=== PATIENT | male | born 1945 | race Caucasian/White ===

== ENCOUNTER 2018-03-01 06:11 | Day surgery (SDC) | payer MEDICARE, OTHER ==
--- NOTE | 2018-02-21 20:34 | HP ---
CC: Dr. Uri Cody; Dr. Servando Baker* ADMITTING HISTORY AND PHYSICAL: DATE OF ADMISSION: 03/01/18 ADMITTING DIAGNOSES: 1. Hematuria. 2. Bladder tumors. PLANNED PROCEDURE: Cystoscopy, transurethral resection of bladder tumors, right stent insertion. SURGEON: Dr. Baker. HISTORY OF PRESENT ILLNESS: Igor Green is a 72-year-old former smoker, who was recently noted to have microscopic hematuria. Cystoscopy revealed multiple areas of the bladder especially on the right side involved by what appears to be high- grade transitional cell carcinoma and in some areas with an appearance worrisome for possibly invasive transitional cell carcinoma. CT urogram did not reveal any evidence of hydronephrosis or any definite involvement of the upper tracts and he is now being brought in for transurethral resection of bladder tumors and right insertion. PAST MEDICAL HISTORY: Significant for: 1. Diabetes mellitus. 2. Hypertension. 3. High cholesterol. 4. Recurrent renal calculi. PAST SURGICAL HISTORY: Significant for tonsillectomy, back surgery in 1969, bilateral inguinal hernia surgery, cholecystectomy, ureteroscopy, and lithotripsy. MEDICATIONS ON ADMISSION: 1. Amlodipine 5 mg daily. 2. Allopurinol 300 mg daily. 3. Atorvastatin 20 mg daily. 4. Avodart 0.5 mg daily. 5. Metformin 500 mg 2 tablets b.i.d. 6. Glipizide XL 5 mg 2 tablets b.i.d. 7. Indapamide 2.5 mg daily. 8. Potassium citrate 10 mEq 3 times a day. 9. Flomax 0.4 mg daily. 10. Victoza 1 injection daily. 11. Lantus units at bedtime. 12. Flonase p.r.n. ALLERGIES AND INTOLERANCES: AMOXICILLIN, CLARITHROMYCIN, and INTRAVENOUSLY ADMINISTERED IODINATED CONTRAST. REVIEW OF SYSTEMS: He denies any chest pain. He is still fairly active and occasionally has shortness of breath with significant uphill walking, but is overall in fairly good shape in terms of his tolerance of physical activity. PHYSICAL EXAMINATION VITAL SIGNS: Reveal blood pressure of 150/80, pulse 71 per minute and regular, oxygen saturation 97% on room air. LUNGS: Clear bilaterally. CARDIOVASCULAR: Regular rate and rhythm. S1, S2. ABDOMEN: Soft without masses. IMPRESSION: I had a detailed discussion with Mr. Green and Ms. Green regarding the findings on cystoscopy. My concern is that the visual appearance is suspicious possibly for invasive transitional cell carcinoma and the extent of bladder involvement also appears fairly significant. PLAN: Plan is transurethral resection of bladder tumors, right stent insertion. [id number]/[facility]PS #: [id number] MTDD
[~2018-03-01 06:11] MED LIST: Buffered Lidocaine 0.9% SYRIN* 5 ML/SYR SYRINGE INTRADERM ONE
[2018-03-01] MEDS ORDERED: Levofloxacin 500 MG IVPREMIX(* 500 MG/100 ML BAG IVPB ONE (06:35)
[2018-03-01] MEDS ORDERED: Iohexol 180 (CONTRAST) 10 ML SDV IV ONE (07:23)
[2018-03-01] MEDS ORDERED: Propofol* 10 MG/ML 20 ML BTL IV PUSH ONE (07:26)
[2018-03-01] MEDS ORDERED: Midazolam* 1 MG/ML 5 ML VIAL (5 MG) ONE (07:26)
[2018-03-01] MEDS ORDERED: fentaNYL* 50 MCG/ML 2 ML VIAL (100 MCG VIAL) ONE (07:26)
[2018-03-01] MEDS ORDERED: Atracurium* 10 MG/ML 10 ML VIAL ONE (07:26)
[2018-03-01] MEDS ORDERED: fentaNYL* 50 MCG/ML 2 ML VIAL (100 MCG VIAL) IV PRN (08:07)
[2018-03-01] MEDS ORDERED: Ondansetron INJ* 2 MG/ML VIAL IV PRN (08:07)
[2018-03-01] MEDS ORDERED: oxyCODONE/Acetamin 5/325 MG* TAB PO PRN (08:07)
[2018-03-01] MEDS ORDERED: HYDROmorphone INJ* 0.5 MG/0.5 ML SYRINGE IV PRN (08:07)
[2018-03-01] MEDS ORDERED: Naloxone* 0.4 MG/ML 1 ML VIAL IV PRN (08:07)
[2018-03-01] MEDS ORDERED: Furosemide IV* 10 MG/ML 2 ML VIAL (20 MG) ONE ×2 (08:27→09:15)
--- NOTE | 2018-03-01 09:24 | RAD ---
INDICATION: Ureteral stent placement COMPARISONS: February 18, 2016 TECHNIQUE: Fluoroscopy was provided for a retrograde pyelogram and stent placement. Total fluoroscopy time is: 9 seconds FINDINGS: Contrast is noted within the renal collecting system. A ureteral stent is noted. IMPRESSION: FLUOROSCOPY WAS PROVIDED FOR A RETROGRADE PYELOGRAM AND STENT PLACEMENT CPT II Codes: G9500
[2018-03-01] MEDS ORDERED: Lidocaine 2% JELLY* 6 ML JELLY TOPICAL ONE (09:27)
[2018-03-01 10:14] VITALS: BP 149/83
--- NOTE | 2018-03-01 13:24 | OP ---
CC: Dr. Uri Cody * DATE OF OPERATION: 03/01/18 - [facility] DATE OF : 47 SURGEON: Dr. Baker. ANESTHESIOLOGIST: Dr. Frye. ANESTHESIA: General. PRE-OP DIAGNOSES: 1. Hematuria. 2. Bladder tumors. POST-OP DIAGNOSES: 1. Hematuria. 2. Bladder tumors. OPERATIVE PROCEDURE: 1. Cystoscopy, transurethral resection and fulguration of multiple bladder tumors (6 to 7 cm aggregates). 2. Right retrograde and right stent insertion. COMPLICATIONS: None. BLOOD LOSS: Less than 50 cc. STENT USED: 6-Sammarinese stent right ureter. INDICATIONS: Igor Green is a 72-year-old former smoker who was recently evaluated and noted to have significant microscopic hematuria, this prompted a cystoscopy in my office, which revealed the above-mentioned bladder tumors. Some of the tumors were surrounding the right orifice even though they are not causing any obstruction. OPERATIVE FINDINGS: 1. Moderately enlarged prostate. 2. Multiple papillary tumors distributed throughout the entire right side of bladder and surrounding right ureteral orifice (without causing obstruction), appearance consistent with high-grade transitional cell carcinoma, possibly invading lamina propria. POSTOPERATIVE CONDITION: Stable. DESCRIPTION OF PROCEDURE: After induction of general anesthesia, the patient was placed in dorsal lithotomy position, sequential compression devices were in place and functioning. Initial cystoscopy revealed the above-mentioned findings. Guidewire was introduced into the right ureter and right retrograde pyelogram was performed. There was no evidence of obstruction or filling defect and a 6- Sammarinese stent was introduced. Next, using the biopsy forceps in store representative, biopsies were obtained and sent for histopathology. Next, the resectoscope was introduced and all of the visible tumor was resected down to muscle. The tumor was distributed throughout the lateral wall and also the right side of the trigone and also extending towards the anterior wall. At the end of the procedure, hemostasis appeared satisfactory and there was no evidence of bladder perforation. A 22-Sammarinese Gutierrez catheter was introduced for bladder drainage. If the pathology reveals muscle invasive tumor then the next step would be to consider cystectomy possibly with caroline-adjuvant chemotherapy; if however the tumor is not invading into the muscle, then I would consider bringing him back in 3 to 4 weeks for a repeat transurethral resection to rule out any occult muscle invasion. The patient tolerated the procedure satisfactorily and was transferred back to the recovery area in stable condition. [id number]/[facility] #: [id number] MTDD
== END 2018-03-01 11:14 | disposition home or self-care (01) ==
LOC: OR 06:11
PROVIDERS: ATTEND Urology
DX: C67.2 Malignant neoplasm of lateral wall of bladder (principal); R31.29 Other microscopic hematuria; Z87.891 Personal history of nicotine dependence; N40.0 Benign prostatic hyperplasia without lower urinary tract symptoms; E11.9 Type 2 diabetes mellitus without complications; Z79.84 Long term (current) use of oral hypoglycemic drugs; E78.00 Pure hypercholesterolemia, unspecified; Z87.442 Personal history of urinary calculi; I10 Essential (primary) hypertension
CPT/HCPCS: 74420; 88305; C1876; J1940; J1956; J2250; J2704; J3010

== ENCOUNTER 2018-04-14 06:10 | Day surgery (SDC) | payer MEDICARE, OTHER ==
--- NOTE | 2018-04-05 06:49 | HP ---
CC: Dr. Uri Cody * ADMITTING HISTORY AND PHYSICAL: DATE OF ADMISSION: 04/14/18 ADMITTING DIAGNOSES: 1. Bladder cancer. 2. Hematuria. PLANNED PROCEDURES: 1. Cystoscopy, transurethral resection of bladder tumors (second-look procedure ). 2. Possible right stent insertion. SURGEON: Dr. Baker. HISTORY OF PRESENT ILLNESS: Igor Green is a 72-year-old former smoker who had undergone transurethral resection of bladder tumors on 03/01/18. Visual appearance had been consistent with high-grade transitional cell carcinoma; however, the pathology on the resected specimen showed low-grade noninvasive transitional cell carcinoma. Because of my concern at the initial visual appearance, he is now being brought in for a second-look procedure to make sure that no areas of high-grade or potentially invasive tumor were overlooked during the initial resection. PAST MEDICAL HISTORY: Significant for: 1. Recently diagnosed superficial bladder cancer. 2. Hypertension. 3. High cholesterol. 4. Diabetes mellitus. 5. History of renal calculi. MEDICATIONS ON ADMISSION: 1. Allopurinol 300 mg a day. 2. Avodart 0.5 mg a day. 3. Amlodipine 5 mg daily. 4. Atorvastatin 20 mg daily. 5. Glipizide XL 10 mg b.i.d. 6. Metformin 1000 mg twice a day. 7. Indapamide 2.5 mg daily. 8. Potassium citrate 10 mEq 3 times a day. 9. Lantus insulin at bedtime. 10. Victoza 1 injection daily. 11. Flomax 0.4 mg once a day. ALLERGIES AND INTOLERANCES: CLARITHROMYCIN, AMOXICILLIN, and INTRAVENOUS IODINATED CONTRAST. REVIEW OF SYSTEMS: He is otherwise in good health. He denies any chest pain or any shortness of breath and is fairly active physically. PHYSICAL EXAMINATION GENERAL: Reveals a pleasant healthy-appearing elderly gentleman. VITAL SIGNS: Blood pressure is 148/82, pulse 74 per minute, regular, oxygen saturation 96% on room air. LUNGS: Clear bilaterally. CARDIOVASCULAR EXAM: Regular rate and rhythm. S1, S2. ABDOMEN: Soft without masses. IMPRESSION: A 72-year-old former smoker with recently diagnosed superficial bladder cancer, now brought in for a second-look procedure. PLAN: Cystoscopy, transurethral resection of bladder tumors, possible right stent insertion. [id number]/[facility] #: [id number] [facility]
[~2018-04-14 06:10] MED LIST changes: +Famotidine IV* 10 MG/ML 2 ML (20 mg) IV ONE; +Metoclopramide IV* 5 MG/ML 2 ML VIAL IV SLOW PU ONE
[2018-04-14] MEDS ORDERED: Famotidine IV* 10 MG/ML 2 ML (20 mg) ONE (06:20)
[2018-04-14] MEDS ORDERED: Metoclopramide IV* 5 MG/ML 2 ML VIAL ONE (06:20)
[2018-04-14] MEDS ORDERED: Levofloxacin 500 MG IVPREMIX(* 500 MG/100 ML BAG IVPB ONE (06:21)
[2018-04-14] MEDS ORDERED: Buffered Lidocaine 0.9% SYRIN* 5 ML/SYR SYRINGE ONE (06:21)
[2018-04-14] MEDS ORDERED: Lidocaine 2% PF * 5 ML VIAL ONE (08:07)
[2018-04-14] MEDS ORDERED: Ondansetron INJ* 2 MG/ML VIAL ONE (08:07)
[2018-04-14] MEDS ORDERED: Furosemide IV* 10 MG/ML 2 ML VIAL (20 MG) ONE (08:07)
[2018-04-14] MEDS ORDERED: Propofol* 10 MG/ML 20 ML BTL IV PUSH ONE (08:07)
[2018-04-14] MEDS ORDERED: Naloxone* 0.4 MG/ML 1 ML VIAL IV PRN (08:50)
[2018-04-14] MEDS ORDERED: fentaNYL* 50 MCG/ML 2 ML VIAL (100 MCG VIAL) IV PRN (08:50)
[2018-04-14] MEDS ORDERED: Ketorolac INJ* 30 MG/ML 1 ML VIAL IV PRN (08:50)
[2018-04-14] MEDS ORDERED: Lidocaine 2% JELLY* 6 ML JELLY TOPICAL ONE (09:18)
--- NOTE | 2018-04-14 09:27 | RAD ---
INDICATION: Right ureteral stent insertion COMPARISONS: March 01, 2018 TECHNIQUE: Fluoroscopy was provided for a retrograde pyelogram and stent placement. Total fluoroscopy time is: 8 seconds FINDINGS: Spot images demonstrate contrast within the renal collecting system and a ureteral stent. IMPRESSION: FLUOROSCOPY WAS PROVIDED FOR A RETROGRADE PYELOGRAM AND STENT PLACEMENT CPT II Codes: G9500
[2018-04-14 09:51] VITALS: BP 145/79
--- NOTE | 2018-04-15 01:06 | OP ---
DATE OF OPERATION: 04/14/18 - [facility] DATE OF : 47 SURGEON: Servando Baker MD PRE-OP DIAGNOSIS: Bladder cancer. POST-OP DIAGNOSIS: Bladder cancer. OPERATIVE PROCEDURE: 1. Transurethral resection and fulguration of bladder tumors (second-look procedure). Aggregate 5 to 6 cm. 2. Right retrograde and right stent insertion. STENT USED: 7-Armenian stent right ureter. INDICATIONS: Igor Green is a 72-year-old gentleman who had previously undergone transurethral resection for superficial bladder cancer. Visually the tumor had appearance of high grade bladder cancer and pathology report revealed low-grade superficial bladder tumors. Because of the concern of the visual appearance, he is now being brought in for a second look procedure. POSTOPERATIVE CONDITION: Stable. BLOOD LOSS: Less than 50 cc. SPECIMEN: Bladder tumors, right lateral wall. DESCRIPTION OF PROCEDURE: After induction of general anesthesia, the patient was placed in dorsal lithotomy position. Sequential compression devices were in place and functioning. Initial cystoscopy revealed a normal appearing urethra and a significantly large obstructing prostate. The bladder was examined. There was extensive reaction in the right lateral wall and adjacent to the right side of the trigone, most of which I think represented post- operative reaction, but some of it may be residual tumor. There were some changes also extending anteriorly from the right lateral wall, which may represent carcinoma in situ. A guidewire was initially placed into the right ureter. Retrograde pyelogram did not reveal any filling defect or obstruction. The guidewire was left in while the rest of the procedure was carried out, because I was not sure whether I was going to place a stent. [employer] biopsies were obtained and sent for histopathology. Using the resectoscope all of the abnormal-appearing area was resected and sent for histopathology. Hemostasis was secured using the coagulating current. There was no evidence of bladder perforation. Since I had to do a fair amount of work close to what would be the intramural portion of the right ureter, I elected to go ahead and place a right stent and a 7-Armenian stent was introduced and positioned under fluoroscopy with good proximal and distal positioning obtained. A 22-Armenian Gutierrez was placed with temporary bladder drainage. The patient tolerated the procedure satisfactorily and was transferred back to recovery area in stable condition. [id number]/[facility] #: [id number] [facility]
== END 2018-04-14 10:24 | disposition home or self-care (01) ==
LOC: OR 06:10
PROVIDERS: ATTEND Urology
DX: C67.2 Malignant neoplasm of lateral wall of bladder (principal); E11.9 Type 2 diabetes mellitus without complications; Z79.4 Long term (current) use of insulin; Z79.84 Long term (current) use of oral hypoglycemic drugs; I10 Essential (primary) hypertension; E78.00 Pure hypercholesterolemia, unspecified; Z87.442 Personal history of urinary calculi; Z87.891 Personal history of nicotine dependence
CPT/HCPCS: 74420; 88305; C1876; J1940; J1956; J2405; J2704; J2765

== ENCOUNTER 2018-04-20 13:20 | Inpatient (IN) | payer MEDICARE, OTHER ==
[2018-04-20 14:15] LABS: ABS Basophils 0.1 10^3/ul (0-0.2); ABS Eosinophils 0.3 10^3/ul (0-0.6); ABS Lymphocytes 0.7 10^3/ul (1.0-4.8); ABS Monocytes 1.3 10^3/ul (0-0.8); ABS Nucleated RBC 0 10^3/ul; Eosinophil % 2.2 % (0-6); Hematocrit 45 % (42-52); Hemoglobin 15.5 g/dl (14.0-18.0); Lymphocyte % 5.2 % (25-47); Mean Corpuscular HGB Conc 34 g/dl (31-36); Mean Corpuscular Hemoglobin 32 pg (27-31); Mean Corpuscular Volume 93 fL (80-94); Mean Platelet Volume 8.8 um3 (7.4-10.4); Nucleated Red Blood Cells % 0; Platelet Count 211 10^3/ul (150-450); Red Blood Count 4.84 10^6/ul (4.00-5.40); Red Cell Distribution Width 13 % (10.5-15); White Blood Count 13.3 10^3/ul (3.5-10.8)
[2018-04-20 14:33] LABS: EGFR Non-African American 46.1 (>60)
--- NOTE | 2018-04-20 14:48 | ED ---
HPI Febrile Illness - HPI Summary HPI Summary: 72 y/o male presents to ED c/o sudden onset fever and chills starting this morning. Pt c/o pain at site of R stent with urination at 04:00 this morning. Although the pt usually c/o of mild pain with urination, it usually resolves spontaneously; this morning the pain did not resolve. Pt had increased urinary frequency throughout the night; pt states he had to go once every 20 minutes or so. After the episode fo pain the pt developed chills and a fever; his temperature reached 101.5 this morning. Given 2 Tylenol at 07:00 this morning. After some relief of sx, pt again developed chills and fever late this morning ( 101.7). Seen at Dr. Baker's office today and given 2g of Rocephin IM. Then the pt's temperature spiked to 103 and the pt was sent to the ED. Pt had gallbladder sx 6 days ago. PMHx gallbladder CA, DM. Rectal temp on visit 102.2. - History of Current Complaint Chief Complaint: EDFever Time Seen by Provider: 04/20/18 14:41 Hx Obtained From: Patient Onset/Duration: Started Hours Ago, Still Present Timing: Constant Pain Intensity: 0 Associated Signs and Symptoms: Chills, Other: - increased urinary frequency, pain with urination - Allergy/Home Medications Allergies/Adverse Reactions: Allergies Allergy/AdvReac Type Severity Reaction Status Date / Time ampicillin Allergy Intermediate Hives Verified 04/14/18 06:25 Penicillins Allergy Intermediate Hives Verified 04/14/18 06:25 iv contrast Allergy Intermediate Rash Uncoded 04/14/18 06:25 Home Medications: Home Medications amLODIPine TAB* [Norvasc 5 mg TAB*] 5 mg PO QPM 04/20/18 [History Confirmed 05/28] PMH/Surg Hx/FS Hx/Imm Hx Previously Healthy: No Endocrine/Hematology History: Reports: Hx Diabetes Cardiovascular History: Reports: Hx Hypertension, Other Cardiovascular Problems/ Disorders - hyperlipidemia GI History: Reports: Hx Irritable Bowel - reports d/t metformin, Other GI Disorders - hx of h pylori- resolved History: Reports: Hx Kidney Stones - renal calculi, Other Problems/ Disorders - bladder cancer Musculoskeletal History: Reports: Hx Arthritis - bilateral hands Sensory History: Reports: Hx Cataracts - just beginning, Hx Contacts or Glasses - glasses Denies: Hx Hearing Aid Opthamlomology History: Reports: Hx Cataracts - just beginning, Hx Contacts or Glasses - glasses Neurological History: Reports: Hx Nerve Disease - diabetic neuropathy - Surgical History Surgery Procedure, Year, and Place: 1949 TONSILLECTOMY, [facility]. 1969 BACK SURGERY, [place]. 1965 RIGHT ANKLE SURGERY, [place]. 1975 PAPAYA INJECTION IN BACK, [place]. 1992 BILATERAL INGUINAL HERNIA REPAIR, [facility] [place]. 2005 LAPAROSCOPIC CHOLECYSTECTOMY, [facility] [place]. 2010 CYSTOSCOPY WITH LEFT STENT INSERTION, X 2 [facility] [place]. 2010 LEFT INGUINAL HERNIA REPAIR, [facility] [place]. - february 2018 [facility] [place]. 2013 CYSTO with right stent insertion - [facility] [place] Hx Anesthesia Reactions: No Infectious Disease History: No Infectious Disease History: Denies: Traveled Outside the [place] in Last 30 Days - Social History Alcohol Use: Daily Alcohol Amount: reports 2 beers per day, one small glass scotch daily Substance Use Type: Reports: None Smoking Status (MU): Former Smoker Type: Cigarettes Amount Used/How Often: smoked 1ppd for approx 6 years Review of Systems Positive: Fever, Chills Eyes: Negative ENT: Negative Cardiovascular: Negative Respiratory: Negative Gastrointestinal: Negative Positive: frequency - increased, pain - with urination Musculoskeletal: Negative Skin: Negative Neurological: Negative Psychological: Normal All Other Systems Reviewed And Are Negative: Yes Physical Exam - Summary Physical Exam Summary: VITAL SIGNS: Reviewed. GENERAL: Patient is a well-developed and nourished male who is lying comfortable in the stretcher. Patient is not in any acute respiratory distress. Patient is febrile. HEAD AND FACE: No signs of trauma. No ecchymosis, hematomas or skull depressions. No sinus tenderness. EYES: PERRLA, EOMI x 2, No injected conjunctiva, no nystagmus. EARS: Hearing grossly intact. Ear canals and tympanic membranes are within normal limits. MOUTH: Oropharynx within normal limits. NECK: Supple, trachea is midline, no adenopathy, no JVD, no carotid bruit, no c- spine tenderness, neck with full ROM. CHEST: Symmetric, no tenderness at palpation LUNGS: Clear to auscultation bilaterally. No wheezing or crackles. CVS: Regular rate and rhythm, S1 and S2 present, no murmurs or gallops appreciated. ABDOMEN: Soft, non-tender. No signs of distention. No rebound no guarding, and no masses palpated. Bowel sounds are normal. EXTREMITIES: FROM in all major joints, no edema, no cyanosis or clubbing. NEURO: Alert and oriented x 3. No acute neurological deficits. Speech is normal and follows commands. SKIN: Dry and warm Triage Information Reviewed: Yes Vital Signs On Initial Exam: Initial Vitals Temp Pulse Resp BP Pulse Ox 101.3 F 98 17 179/69 96 04/20/18 13:22 04/20/18 13:22 04/20/18 13:22 04/20/18 13:22 04/20/18 13:22 Vital Signs Reviewed: Yes Diagnostics - Vital Signs Vital Signs Temp Pulse Resp BP Pulse Ox 04/20/18 13:22 101.3 F 98 17 179/69 96 - Laboratory Lab Results: Lab Results 04/20/18 04/20/18 04/20/18 Range/Units 14:03 14:03 14:03 WBC 13.3 H (3.5-10.8) 10^3/ul RBC 4.84 (4.00-5.40) 10^6/ul Hgb 15.5 (14.0-18.0) g/dl Hct 45 (42-52) % MCV 93 (80-94) fL MCH 32 H (27-31) pg MCHC 34 (31-36) g/dl RDW 13 (10.5-15) % Plt Count 211 (150-450) 10^3/ul MPV 8.8 (7.4-10.4) um3 Neut % (Auto) 82.8 (38-83) % Lymph % (Auto) 5.2 L (25-47) % [place] % (Auto) 9.4 H (0-7) % Eos % (Auto) 2.2 (0-6) % Baso % (Auto) 0.4 (0-2) % Absolute Neuts (auto) 11.0 H (1.5-7.7) 10^3/ul Absolute Lymphs (auto) 0.7 L (1.0-4.8) 10^3/ul Absolute Monos (auto) 1.3 H (0-0.8) 10^3/ul Absolute Eos (auto) 0.3 (0-0.6) 10^3/ul Absolute Basos (auto) 0.1 (0-0.2) 10^3/ul Absolute Nucleated RBC 0 10^3/ul Nucleated RBC % 0 Sodium 135 (135-145) mmol/L Potassium 3.5 (3.5-5.0) mmol/L Chloride 95 L (101-111) mmol/L Carbon Dioxide 28 (22-32) mmol/L Anion Gap 12 H (2-11) mmol/L BUN 23 (6-24) mg/dL Creatinine 1.50 H (0.67-1.17) mg/dL Est GFR ( Amer) 55.8 (>60) Est GFR (Non-Af Amer) 46.1 (>60) BUN/Creatinine Ratio 15.3 (8-20) Glucose 160 H (70-100) mg/dL Lactic Acid 1.7 (0.5-2.0) mmol/L Calcium 9.5 (8.6-10.3) mg/dL Total Bilirubin 0.60 (0.2-1.0) mg/dL AST 31 (13-39) U/L ALT 36 (7-52) U/L Alkaline Phosphatase 60 (34-104) U/L C-Reactive Protein 25.51 H (<8.01) mg/L Total Protein 8.0 (6.4-8.9) g/dL Albumin 4.5 (3.2-5.2) g/dL Globulin 3.5 (2-4) g/dL Albumin/Globulin Ratio 1.3 (1-3) Result Diagrams: 04/20/18 14:03 04/20/18 14:03 Lab Statement: Any lab studies that have been ordered have been reviewed, and results considered in the medical decision making process. - Radiology CXR Xray Interpretation: No Acute Changes - No active cardiopulmonary disease noted Radiology Interpretation Completed By: Radiologist - ED Physician reviews and agrees - EKG 1 EKG Interpretation: 14:57 - SR @ [address] elevations. Similar to 08/04/05 Course/Dx - Course Assessment/Plan: 72 y/o male presents to ED c/o sudden onset fever and chills starting this morning. Pt c/o pain at site of R stent with urination at 04:00 this morning. Although the pt usually c/o of mild pain with urination, it usually resolves spontaneously; this morning the pain did not resolve. Pt had increased urinary frequency throughout the night; pt states he had to go once every 20 minutes or so. After the episode fo pain the pt developed chills and a fever; his temperature reached 101.5 this morning. Given 2 Tylenol at 07:00 this morning. After some relief of sx, pt again developed chills and fever late this morning (101.7). Seen at Dr. Baker's office today and given 2g of Rocephin IM. Then the pt's temperature spiked to 103 and the pt was sent to the ED. Pt had gallbladder sx 6 days ago. PMHx gallbladder CA, DM. Rectal temp on visit 102.2. Blood work without any significant abnormality except for white blood cell count of 13.3, anion gap of 12, creatinine of 1.5, glucose 160, and CRP of 25.5. I ordered the patient to get to IV accesses and the patient was given IV fluids 30 cc's per KG and I gave the patient one dose of Cefepime since I believe that the patient is becoming septic. I discussed the case with Dr. Baker from urology and he agrees with the management. He recommends admission to the hospitalist and he will consult for the patient. I also discussed the findings and test results with Dr. Carey from the hospital services and she accepted patient for admission. Patient continues to be hemodynamically stable. - Febrile Illness Differential Diagnoses: Bacteremia, Pyelonephritis - Diagnoses Provider Diagnoses: UTI (urinary tract infection), Sepsis - Provider Notifications Discussed Care Of Patient With: Manisha Carey Time Discussed With Above Provider: 15:10 Instructed by Provider To: Admit As Inpatient Discharge - Sign-Out/Discharge Documenting (check all that apply): Patient Departure - Discharge Plan Condition: Stable - Billing Disposition and Condition Condition: STABLE Disposition: Admitted to [facility] - Attestation Statements Document Initiated by Scribe: Yes Documenting Scribe: Jonah Avalos Provider For Whom Rosario is Documenting (Include Credential): Yifan Quezada MD Scribe Attestation: Jonah Mcdonough, scribed for Yifan Quezada MD on 04/20/18 at 1758. Scribe Documentation Reviewed: Yes Provider Attestation: The documentation as recorded by the Jonah smith accurately reflects the service I personally performed and the decisions made by me, Yifan Quezada MD
[2018-04-20] MEDS ORDERED: Acetaminophen TAB* 325 MG ONE (14:51)
[2018-04-20] MEDS ORDERED: NS 0.9% 1000 ML*IV.FLUID IV ONE (14:52)
[2018-04-20] MEDS ORDERED: Acetaminophen TAB* 325 MG PO ONE (14:54)
[2018-04-20] MEDS ORDERED: Cefepime 2 GM in Dextrose(*) 2 GM/50 ML BAG IV ONE (15:00)
--- NOTE | 2018-04-20 15:40 | RAD ---
Indication: Fever. Single frontal view of the chest performed at 1518 hours was reviewed. No prior study is available for comparison. No mediastinal shift is noted. Heart is of normal size and configuration. Lung santos appear clear. IMPRESSION: NO ACTIVE CARDIOPULMONARY DISEASE IS NOTED.
[2018-04-20] MEDS ORDERED: Fluticasone NASAL SPRAY 50MCG* 16 gm SPRAY BTL BOTH NARES PRN (16:28)
[2018-04-20] MEDS ORDERED: Dextrose 50% Syringe 50 ML* 25 GM/50 ML SYRINGE IV PUSH PRN (16:30)
[2018-04-20] MEDS ORDERED: NS 0.9% 1000 ML* 2,000 ML IV ONE (16:40)
[2018-04-20 17:39] LABS: Urine Appearance Cloudy; Urine Blood 2+ (Negative); Urine Color Straw; Urine Ketones Negative (Negative); Urine Protein 1+(30 mg/dL) (Negative); Urine Red Blood Cell 3+(>10/hpf) (Absent); Urine Specific Gravity 1.009 (1.010-1.030); Urine Urobilinogen Negative (Negative); Urine White Blood Cell 3+(>20/hpf) (Absent)
[2018-04-20] MEDS ORDERED: amLODIPine TAB* 5 MG PO SCH (18:00)
[2018-04-20] MEDS: Cyanocobalamin TAB* 500 MCG PO SCH (19:27)
[2018-04-20] MEDS: Tamsulosin CAP* 0.4 MG PO SCH (19:27)
[2018-04-20] MEDS: Atorvastatin* 20 MG TAB PO SCH (19:27)
[2018-04-20] MEDS: Insulin LISPRO* 1 UNITS UNIT SUBCUT SCH ×2 (19:49→19:55)
[2018-04-20] MEDS: Insulin GLARGINE(*) 1 UNITS UNIT SUBCUT SCH (20:11)
[2018-04-20] MEDS: Heparin VIAL(*) 5000 UNITS/ML VIAL (FIVE THOUSAND) SUBCUT SCH (20:11)
[2018-04-20] MEDS: Acetaminophen TAB* 325 MG PO PRN (20:15)
--- NOTE | 2018-04-20 20:56 | HP ---
CC: Dr. Baker; Dr. Cody* HISTORY AND PHYSICAL: DATE OF ADMISSION: 04/20/18 TIME OF ADMISSION: 4:30 p.m. CHIEF COMPLAINT: Fevers. HISTORY OF PRESENT ILLNESS: This is a 72-year-old man with history of bladder cancer, who underwent a biopsy on Tuesday with Dr. Baker and had been recovering well until this morning when he woke up with fevers and chills. He initially had a biopsy several weeks ago, which according to his returned as low- grade neoplasm and Dr. Baker was concerned for a more aggressive type of cancer , so he elected to do a repeat biopsy on Tuesday. Igor admits that he had been feeling very drained since that time, but thought that he was healing okay. He of note also has a ureteral stent and gets dysuria since that stent was placed; however, since Tuesday, he has had worsening right lower quadrant pain. PAST MEDICAL HISTORY: 1. Type 2 diabetes. 2. Hypertension. 3. Gout. 4. BPH. 5. Nephrolithiasis. 6. Bladder cancer. PAST SURGICAL HISTORY: Lithotripsy and cystoscopy and hernia repairs. SOCIAL HISTORY: He quit smoking 45 years ago. He drinks approximately 4 beers and 1 scotch per day; however, he has not drank since Tuesday. He has never had alcohol withdrawal. REVIEW OF SYSTEMS: Positive for dysuria, fevers, chills, abdominal pain. He denies diarrhea, constipation, nausea, vomiting, headaches. The remainder of 14 - point review of systems is negative. PHYSICAL EXAMINATION GENERAL: Alert, well-appearing man, in no distress. VITAL SIGNS: Current temperature is 100.4, peak temperature was 102.2 rectally ; heart rate is 97; respiratory rate 22; pulse ox 96% on room air; blood pressure 158/80. HEENT: Pupils are equal, round, and reactive to light. Oral mucosa is moist. He has no pharyngeal exudates. NECK: No JVP. No cervical adenopathy. LUNGS: Clear bilaterally. CHEST: Regular rate and rhythm. No murmurs. PMI is nondisplaced. ABDOMEN: Obese, soft, mildly tender to deep palpation in the right lower quadrant. He has ecchymoses on his abdomen from Victoza injections. He has no CVA tenderness. EXTREMITIES: No rashes, ulcers, edema. NEUROLOGIC: Strength is 5/5 throughout. He is oriented x3. DIAGNOSTIC STUDIES/LAB DATA: White blood cells 13.3, hemoglobin 15.5, platelets 211. Sodium 135, potassium 3.5, chloride 95, BUN 23, creatinine 1.5. Baseline creatinine is 1.4. Glucose 160, lactic acid 1.7. Chest x-ray: No active cardiopulmonary disease. EKG: Normal sinus rhythm, left axis deviation, normal intervals, no chamber hypertrophy, no ST or T changes. ASSESSMENT AND PLAN: This is a 72-year-old man with history of bladder cancer that is currently being worked up by Dr. Baker, presents to the emergency department 6 days after a biopsy with fevers and rigors. 1. Sepsis with a presumed pelvic source. I suspect he had bacteremia given his reported rigors and elevated fevers here, especially in the setting of recent instrumentation. He has received cefepime in the emergency department and I think this is a reasonable antibiotic to continue. He is hemodynamically stable and has received 1 L of fluids. I will give him 2 more liters to complete the 30 cc per kg volume resuscitation. Blood cultures have been sent in the ED. I am ordering a urinalysis and urine cultures and if he does not improve quickly, may consider a CT pelvis to rule out an abscess. 2. Bladder cancer. The pathology report from last Tuesday shows low-grade papillary urothelial carcinoma. I did not discuss this finding with them. He is to undergo BCG treatment with Dr. Baker. I am consulting Dr. Baker. 3. Diabetes. Continue his home dose of Lantus along with lispro and fingersticks. I am holding his metformin and glipizide and Victoza. 4. Benign prostatic hypertrophy. Continue Flomax. 5. Hypertension. Continue amlodipine since he is quite hypertensive here. 6. DVT prophylaxis: Subcutaneous Lovenox. 7. Chronic kidney disease. His creatinine appears at baseline. 8. Diet: Consistent carb. 9. Full code. [id number]/CPS #: [id number] [facility]
[2018-04-20] MEDS ORDERED: glipiZIDE TAB.XL* 5 MG PO SCH (21:00)
[2018-04-20] MEDS ORDERED: Ibuprofen TAB* 400 MG PO ONE (22:13)
[2018-04-21] MEDS: Cefepime 2 GM in Dextrose(*) 2 GM/50 ML BAG IV SCH ×3 (03:46→15:18)
[2018-04-21] MEDS: Heparin VIAL(*) 5000 UNITS/ML VIAL (FIVE THOUSAND) SUBCUT SCH ×3 (07:18→20:33)
[2018-04-21] MEDS: Acetaminophen TAB* 325 MG PO PRN ×2 (07:37→19:48)
[2018-04-21] MEDS ORDERED: Vancomycin 1500 MG IV - x ONCE IVPB ONE ×2 (08:00)
[2018-04-21] MEDS: Allopurinol TAB* 300 MG PO SCH (08:06)
[2018-04-21] MEDS: Insulin LISPRO* 1 UNITS UNIT SUBCUT SCH ×4 (08:06→20:31)
[2018-04-21] MEDS: Indapamide TAB* 2.5 MG PO SCH (08:07)
--- NOTE | 2018-04-21 09:13 | PN ---
Subjective - Subjective Reason for Note: Progress Note History: Last Tuesday (today is Tuesday) Dr. Baker placed a right ureteric stent. 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 He woke yesterday at 5 am with high fever and pain. This was controlled with acetaminophen. His temperature went up >105F and hence he came to the hospital. He has had rigors, chills and sweats. Overnight he had one more episode. He had anterior abdominal pain, that has now eased. He has been cooled overnight with ice packs and a fan. He has a mild headache, but no neck stiffness or photophobia. 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, uncontr (Chronic ) E11.3299, E11.65 Type 2 diabetes, uncontrolled, with neuropathy (Chronic) E11.40, E11.65 Ureteral stent retained (Chronic) Z96.0 Urothelial carcinoma of bladder (Chronic) C67.9 Current Medications: Current Medications Acetaminophen (Tylenol Tab*) 650 mg PO Q6H PRN PRN Reason: FEVER/PAIN Last Admin: 04/21/18 07:37 Dose: 650 mg Allopurinol (Zyloprim Tab*) 300 mg PO QAM [facility] Last Admin: 04/21/18 08:06 Dose: 300 mg Atorvastatin Calcium (Lipitor*) 20 mg PO QPM [facility] Last Admin: 04/20/18 19:27 Dose: 20 mg Cyanocobalamin (Vitamin B12 Tab*) 500 mcg PO QPM [facility] Last Admin: 04/20/18 19:27 Dose: 500 mcg Dextrose (D50w Syringe 50 Ml*) 12.5 gm IV PUSH .FOR FS < 60 - SS PRN PRN Reason: FS < 60 Fluticasone Propionate (Flonase Nasal [place] 50mcg*) 1 spray BOTH NARES ONCE PRN PRN Reason: allergies Heparin Sodium (Porcine) (Heparin Vial(*)) 5,000 units SUBCUT Q8HR [facility] Last Admin: 04/21/18 07:18 Dose: 5,000 units Cefepime HCl (Maxipime 2 Gm In Dextrose Duplex (*)) 2 gm in 50 mls @ 100 mls/ hr IV Q12H [facility] Last Admin: 04/21/18 03:46 Dose: 100 mls/hr Lactated Ringer's (Lactated Ringers 1000 Ml Bag*) 1,000 mls @ 75 mls/hr IV PER RATE [facility] Last Admin: 04/20/18 20:12 Dose: 75 mls/hr Vancomycin HCl 1,500 mg/ (Sodium Chloride) 250 mls @ 166.667 mls/hr IVPB ONCE ONE Stop: 04/21/18 09:29 Last Admin: 04/21/18 08:38 Dose: 166.667 mls/hr Indapamide (Lozol Tab*) 2.5 mg PO QAM [facility] Last Admin: 04/21/18 08:07 Dose: 2.5 mg Insulin Glargine (Lantus(*)) 60 units SUBCUT BEDTIME [facility] Last Admin: 04/20/18 20:11 Dose: 60 unit Insulin Human Lispro (Humalog*) 0 units SUBCUT ACHS [facility]; Protocol Last Admin: 04/21/18 08:06 Dose: 3 units Tamsulosin HCl (Flomax Cap*) 0.4 mg PO QPM [facility] Last Admin: 04/20/18 19:27 Dose: 0.4 mg - Review of Systems Constitutional Symptoms: Yes: Weakness, Fatigue, Fever, Night Sweats Dermatology: Rash: No Pulmonary: Negative: Cough, Sputum, Respiratory Distress, Shortness of Breath Cardiology: Positive: Swelling of Ankles - periodic swelling right ankle ? cause Negative: Chest Pain, Shortness of Breath, Palpitations Gastroenterology: Positive: Abdominal Pain, Nausea Negative: Vomiting, Anorexia, Constipation, Diarrhea, Blood in Stools, Change in Bowel Habits Genital - Urinary: Positive: Dysuria Negative: Hematuria, Polyuria Home Medications: Home Medications Medication Instructions Recorded Confirmed Type Fluticasone NASAL * [Flonase (NF)] 1 inh BOTH NARES ONCE PRN 08/15/12 04/20/18 History Tamsulosin CAP* [Flomax CAP*] 0.4 mg PO QPM 08/15/12 04/20/18 History metFORMIN* [Glucophage*] 2 tab PO BID 08/15/12 04/20/18 History Allopurinol TAB* [Zyloprim 300 MG 300 mg PO QAM 02/21/18 04/20/18 History TAB*] Atorvastatin* [Lipitor*] 20 mg PO QPM 02/21/18 04/20/18 History Cyanocobalamin (Vitamin B-12) 500 mcg PO QPM 02/21/18 04/20/18 History [B-12] Dutasteride (NF) [Avodart (NF)] 0.5 mg PO QAM 02/21/18 04/20/18 History Indapamide TAB* [Lozol TAB*] 2.5 mg PO QAM 02/21/18 04/20/18 History Insulin GLARGINE(*) [Lantus(*)] 60 units SUBCUT BEDTIME 02/21/18 04/20/18 History Liraglutide (NF) [Victoza (NF)] 1.8 mg SUBCUT DAILY 02/21/18 04/20/18 History Potassium Citrate [Potassium 10 meq PO TID 02/21/18 04/20/18 History Citrate ER] glipiZIDE TAB.XL* [Glucotrol XL*] 10 mg PO BID 02/21/18 04/20/18 History amLODIPine TAB* [Norvasc 5 mg TAB*] 5 mg PO QPM 04/20/18 04/20/18 History Allergies: Allergies Allergy/AdvReac Type Severity Reaction Status Date / Time ampicillin Allergy Intermediate Hives Verified 04/14/18 06:25 Penicillins Allergy Intermediate Hives Verified 04/14/18 06:25 iv contrast Allergy Intermediate Rash Uncoded 04/14/18 06:25 Objective - Vital Signs Vital Signs: Vital Signs 04/20/18 04/20/18 04/20/18 13:22 14:48 14:49 Temperature 101.3 F Pulse Rate 98 98 98 Respiratory 17 23 18 Rate Blood Pressure 179/69 179/102 (mmHg) O2 Sat by Pulse 96 93 93 Oximetry 04/20/18 04/20/18 04/20/18 14:54 15:00 15:19 Temperature 102.2 F Pulse Rate Respiratory 20 25 Rate Blood Pressure 171/79 (mmHg) O2 Sat by Pulse Oximetry 04/20/18 04/20/18 04/20/18 15:48 15:50 16:00 Temperature 99.2 F Pulse Rate 94 95 Respiratory 26 26 Rate Blood Pressure 146/80 (mmHg) O2 Sat by Pulse 93 91 Oximetry 04/20/18 04/20/18 04/20/18 16:18 16:31 16:48 Temperature 100.4 F Pulse Rate 97 Respiratory 22 29 Rate Blood Pressure 158/80 153/91 (mmHg) O2 Sat by Pulse 96 Oximetry 04/20/18 04/20/18 04/20/18 17:00 17:18 17:44 Temperature 100.4 F Pulse Rate 96 96 Respiratory 23 22 22 Rate Blood Pressure 144/81 144/81 (mmHg) O2 Sat by Pulse 90 96 Oximetry 04/20/18 04/20/18 04/20/18 17:51 18:15 19:54 Temperature 99.2 F 99.2 F 103.1 F Pulse Rate 101 101 117 Respiratory 24 24 32 Rate Blood Pressure 158/74 158/74 (mmHg) O2 Sat by Pulse 98 94 Oximetry 04/20/18 04/20/18 04/20/18 20:00 20:23 22:34 Temperature 101.8 F 102 F Pulse Rate 115 103 Respiratory 32 38 24 Rate Blood Pressure 169/69 154/63 (mmHg) O2 Sat by Pulse 94 94 94 Oximetry 04/20/18 04/21/18 04/21/18 23:14 00:12 03:14 Temperature 101.8 F 98.9 F 98.4 F Pulse Rate 107 100 81 Respiratory 25 20 20 Rate Blood Pressure 153/75 139/67 149/76 (mmHg) O2 Sat by Pulse 91 94 96 Oximetry 04/21/18 04/21/18 07:30 07:40 Temperature 103.8 F 99.1 F Pulse Rate 110 Respiratory 20 Rate Blood Pressure 145/65 (mmHg) O2 Sat by Pulse 92 Oximetry - Intake and Output Intake and Output: Intake & Output 04/18/18 04/19/18 04/20/18 04/21/18 11:59 11:59 11:59 11:59 Intake Total 3414 Output Total 1975 Balance 1439 Weight 242 lb 12.8 oz Intake: IV Fluids 3351 LR 1351 IVPB 63 LR 63 Oral 0 Output: Urine 1974 Other: # Bowel Movements 0 # Voids 0 ADLs: Meal Record Start: 04/20/18 18: 34 Freq: DAILY@0900,1400,1800 Status: Active Protocol: Created 04/20/18 18:34 System (Rec: 04/20/18 18:34 System [id number]) Intake and Output Start: 04/20/18 13: 26 Freq: Status: Active Protocol: Created 04/20/18 13:26 System (Rec: 04/20/18 13:26 System [id number]) Intake and Output Start: 04/20/18 18: 34 Freq: DAILY@0600,1400,2200 Status: Active Protocol: Created 04/20/18 18:34 System (Rec: 04/20/18 18:34 System [id number]) Document 04/20/18 22:00 [id number] (Rec: 04/20/18 23:30 [id number] TELE-C01) Document 04/20/18 22:15 [id number] (Rec: 04/21/18 01:09 [id number] TELE-C05) Document 04/21/18 01:08 [id number] (Rec: 04/21/18 01:08 [id number] TELE-C05) Document 04/21/18 06:00 [id number] (Rec: 04/21/18 06:14 [id number]) - Physical Exam General Physical Exam Comment: He is flushed, febrile, but well perfused. He has no rash. No neck rigidity. He is conversational and fully lucid/oriented. General: No Cyanosis, No Anemia, No Jaundice, No Clubbing Endocrine: Yes Central Obesity, No Acromegaly, No Vitiligo, No Flushing, No Acanthosis nigricans, No Violaceious striae, No Marshall Syndrome, No Buccal pigmenatation Lungs and Chest: Yes: Chest Expansion Full, Chest Expansion Symetrica, Percussion Note Resonant, Vessicular Breath Sounds. No: Crackles, Wheezes, Respiratory Distress, Use of Accessory Muscles Heart Rate and Rhythm: Tachycardia JVP: Not Elevated Additional Cardiovascular: Yes: Normal Heart Sounds. No: Heart Murmur, Carotid Bruits, Pedal Edema Abdominal Exam: Yes: Soft, Bowel Sounds Present. No: Distention, Rigidity, Abdominal Mass, Hepatomegaly, Abdominal Tenderness, Guarding, Rebound Tenderness - Extremities Cranial Nerves II-XII Intact: Yes Limbs: Normal Power, Normal Tone - Neuro Orientation: A/O x3 Psychiatric: Normal Speech: Normal Results - Results Lab Results: Laboratory Results - last 24 hr 04/20/18 04/20/18 04/20/18 14:03 14:03 14:03 WBC 13.3 H RBC 4.84 Hgb 15.5 Hct 45 MCV 93 MCH 32 H MCHC 34 RDW 13 Plt Count 211 MPV 8.8 Neut % (Auto) 82.8 Lymph % (Auto) 5.2 L Reeves % (Auto) 9.4 H Eos % (Auto) 2.2 Baso % (Auto) 0.4 Absolute Neuts (auto) 11.0 H Absolute Lymphs (auto) 0.7 L Absolute Monos (auto) 1.3 H Absolute Eos (auto) 0.3 Absolute Basos (auto) 0.1 Absolute Nucleated RBC 0 Nucleated RBC % 0 Sodium 135 Potassium 3.5 Chloride 95 L Carbon Dioxide 28 Anion Gap 12 H BUN 23 Creatinine 1.50 H Est GFR ( Amer) 55.8 Est GFR (Non-Af Amer) 46.1 BUN/Creatinine Ratio 15.3 Glucose 160 H POC Glucose (mg/dL) Lactic Acid 1.7 Calcium 9.5 Total Bilirubin 0.60 AST 31 ALT 36 Alkaline Phosphatase 60 C-Reactive Protein 25.51 H Total Protein 8.0 Albumin 4.5 Globulin 3.5 Albumin/Globulin Ratio 1.3 Urine Color Urine Appearance Urine pH Ur Specific [place] Urine Protein Urine Ketones Urine Blood Urine Nitrate Urine Bilirubin Urine Urobilinogen Ur Leukocyte Esterase Urine WBC (Auto) Urine RBC (Auto) Urine Bacteria Urine Glucose 04/20/18 04/20/18 04/20/18 16:40 17:38 18:08 WBC RBC Hgb Hct MCV MCH MCHC RDW Plt Count MPV Neut % (Auto) Lymph % (Auto) Reeves % (Auto) Eos % (Auto) Baso % (Auto) Absolute Neuts (auto) Absolute Lymphs (auto) Absolute Monos (auto) Absolute Eos (auto) Absolute Basos (auto) Absolute Nucleated RBC Nucleated RBC % Sodium Potassium Chloride Carbon Dioxide Anion Gap BUN Creatinine Est GFR ( Amer) Est GFR (Non-Af Amer) BUN/Creatinine Ratio Glucose POC Glucose (mg/dL) 206 H Lactic Acid 1.6 Calcium Total Bilirubin AST ALT Alkaline Phosphatase C-Reactive Protein Total Protein Albumin Globulin Albumin/Globulin Ratio Urine Color Straw Urine Appearance Cloudy Urine pH 6.0 Ur Specific [place] 1.009 L Urine Protein 1+(30 mg/dl) A Urine Ketones Negative Urine Blood 2+ A Urine Nitrate Negative Urine Bilirubin Negative Urine Urobilinogen Negative Ur Leukocyte Esterase 3+ A Urine WBC (Auto) 3+(>20/hpf) A Urine RBC (Auto) 3+(>10/hpf) A Urine Bacteria Absent Urine Glucose Negative 04/20/18 04/20/18 04/21/18 21:16 21:17 07:40 WBC RBC Hgb Hct MCV MCH MCHC RDW Plt Count MPV Neut % (Auto) Lymph % (Auto) Reeves % (Auto) Eos % (Auto) Baso % (Auto) Absolute Neuts (auto) Absolute Lymphs (auto) Absolute Monos (auto) Absolute Eos (auto) Absolute Basos (auto) Absolute Nucleated RBC Nucleated RBC % Sodium 138 Potassium 3.3 L Chloride 104 Carbon Dioxide 24 Anion Gap 10 BUN 21 Creatinine 1.45 H Est GFR ( Amer) 58.1 Est GFR (Non-Af Amer) 48.0 BUN/Creatinine Ratio 14.5 Glucose 225 H POC Glucose (mg/dL) 182 H Lactic Acid 1.9 Calcium 8.3 L Total Bilirubin AST ALT Alkaline Phosphatase C-Reactive Protein Total Protein Albumin Globulin Albumin/Globulin Ratio Urine Color Urine Appearance Urine pH Ur Specific [place] Urine Protein Urine Ketones Urine Blood Urine Nitrate Urine Bilirubin Urine Urobilinogen Ur Leukocyte Esterase Urine WBC (Auto) Urine RBC (Auto) Urine Bacteria Urine Glucose Radiology Results: Patient Name: KATLYN CYR Medical Record#: [id number] Ordering Physician: Yifan Quezada MD Acct.#: [id number] : 1945 Age: 72 Sex: M Location: EMERGENCY DEPARTMENT Exam Date: 04/20/18 1453 ADM Status: REG ER Order Information: CHEST AP PORTABLE Accession Number: [id number] CPT: 58132 Indication: Fever. Single frontal view of the chest performed at 1518 hours was reviewed. No prior study is available for comparison. No mediastinal shift is noted. Heart is of normal size and configuration. Lung santos appear clear. IMPRESSION: NO ACTIVE CARDIOPULMONARY DISEASE IS NOTED. <Electronically signed by Dianna Green MD in [place]> 04/20/181536 Dictated By: Dianna Green MD Dictated Date/Time: 04/20/181536 Transcribed Date/Time: 04/20/181534 Copy to: CC:Uri Coyd MD; Yifan Quezada MD Imaging - [facility] - [place] [facility] [address] [address] ph ([phone]) ph ([phone]) ph ([phone]) This report is only to be considered final once signed by the Provider(s) as displayed in the "<Electronically Signed by >" field (s). Absence of a signature indicates the report is in a draft status and still needs to be finalized. In the event this document was created by someone other than the signing Provider, the individual initiating the document will be listed in the "Entered by:" or "Dictated by:" santos. 1 of 1 EKG Report: Rate 98 OH 145 QTc 557 QRS -33 LAFB. Poor R-wave progression. 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 Baker placed a stent 1 week ago. He presents with sepsis, abdominal pain. I will check an US kidneys to look for right pyonephrosis. I will spoke with Servando Baker MD who saw him in the ED. He recommends a KUB to find the position of the stent and an US kidneys. He will visit later. He is taking vancomycin and cefepime. I won't add anything. I will maintain IVF to support his BP. Urothelial carcinoma of bladder (Chronic) Dr. 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 To continue intensive insulin management Essential hypertension (Chronic) He is not hypotensive. Hyperlipidemia (Chronic) secondary diagnosis Nephrolithiasis (Chronic) Half-Way issue for which he is following with Dr. Baker. A CT in February showed a right sided non-obstructive renal stone. He had a stent placed last Tuesday with a clear retrograde urogram Nonalcoholic steatohepatitis (ALDRIDGE) (Chronic) secondary diagnosis Obesity (BMI 30.0-34.9) (Chronic) secondary diagnosis I discussed the above with the patient - he agrees with management
[2018-04-21] MEDS ORDERED: Vancomycin per Pharmacy* NOTE FOLLOW UP PRN (10:56)
--- NOTE | 2018-04-21 12:37 | RAD ---
HISTORY: urosepsis COMPARISONS: CT dated February 17, 2018 TECHNIQUE: Multiple transverse and longitudinal ultrasound images were obtained of the kidneys using grayscale and color Doppler imaging. FINDINGS: RIGHT KIDNEY: There is an exophytic simple cyst of the lower pole of the right kidney measuring 1.6 x 1.6 x 1.3 cm in size, corresponding to the finding noted on the previous CT examination. There is no hydronephrosis or nephrolithiasis. The right kidney measures 11.9 x 6.4 x 7.4 cm. LEFT KIDNEY: There are multiple renal cysts, including a cyst with a thin internal septation versus 2 adjacent simple cysts of the midpole of the left kidney. These are stable from the previous CT examination, measuring up to 2.7 cm in size. There is no hydronephrosis or nephrolithiasis. The left kidney measures 10.8 x 6.2 x 8.1 cm. BLADDER: The bladder is smooth in contour. The left ureteral jet is not clearly visualized.. The prevoid bladder volume is 282 milliliters.. The postvoid bladder volume is 215 milliliters. AORTA AND IVC: No images are submitted of the vasculature. RETROPERITONEUM: Unremarkable. PROSTATE: The prostate gland measures 5 x 2.2 x 3.74 volume of 21.9 mL. IMPRESSION: 1. NO HYDRONEPHROSIS. 2. THE LEFT URETERAL JET IS NOT CLEARLY VISUALIZED. 3. 215 ML POSTVOID RESIDUAL
--- NOTE | 2018-04-21 13:38 | RAD ---
HISTORY: urosepsis with right stent COMPARISONS: April 14, 2018 VIEWS: Frontal views of the abdomen. FINDINGS: BOWEL: There is a nonspecific bowel gas pattern, with nondilated small bowel gas noted. CALCULI: A right ureteral stent is noted. BONES AND SOFT TISSUES: Degenerative changes are noted. OTHER FINDINGS: The lung bases are clear. There is no subphrenic gas. IMPRESSION: RIGHT URETERAL STENT
[2018-04-21] MEDS: Atorvastatin* 20 MG TAB PO SCH (17:11)
[2018-04-21] MEDS: Cyanocobalamin TAB* 500 MCG PO SCH (17:11)
[2018-04-21] MEDS: Tamsulosin CAP* 0.4 MG PO SCH (17:11)
[2018-04-21] MEDS: Vancomycin(*) 1,250 MG in NS 0.9% 250 ML* 250 ML IVPB SCH (20:27)
[2018-04-21] MEDS: Insulin GLARGINE(*) 1 UNITS UNIT SUBCUT SCH (20:30)
[2018-04-22] MEDS: Cefepime 2 GM in Dextrose(*) 2 GM/50 ML BAG IV SCH ×2 (03:29→15:08)
[2018-04-22 05:04] LABS: Hematocrit 38 % (42-52); Mean Corpuscular HGB Conc 34 g/dl (31-36); Mean Corpuscular Hemoglobin 32 pg (27-31); Mean Corpuscular Volume 93 fL (80-94); Mean Platelet Volume 8.6 um3 (7.4-10.4); Platelet Count 156 10^3/ul (150-450); Red Blood Count 4.07 10^6/ul (4.00-5.40); Red Cell Distribution Width 13 % (10.5-15)
[2018-04-22 05:05] LABS: ABS Basophils 0.1 10^3/ul (0-0.2); ABS Eosinophils 0.3 10^3/ul (0-0.6); ABS Lymphocytes 0.7 10^3/ul (1.0-4.8); ABS Monocytes 1.6 10^3/ul (0-0.8); ABS Neutrophils 15.2 10^3/ul (1.5-7.7); ABS Nucleated RBC 0 10^3/ul; Eosinophil % 1.5 % (0-6); Lymphocyte % 4.2 % (25-47); Nucleated Red Blood Cells % 0
[2018-04-22 05:24] LABS: EGFR Non-African American 50.8 (>60)
[2018-04-22] MEDS: Heparin VIAL(*) 5000 UNITS/ML VIAL (FIVE THOUSAND) SUBCUT SCH ×3 (05:32→20:08)
[2018-04-22] MEDS: Vancomycin(*) 1,250 MG in NS 0.9% 250 ML* 250 ML IVPB SCH (08:05)
[2018-04-22] MEDS: Allopurinol TAB* 300 MG PO SCH (08:06)
[2018-04-22] MEDS: Indapamide TAB* 2.5 MG PO SCH (08:06)
[2018-04-22] MEDS: Insulin LISPRO* 1 UNITS UNIT SUBCUT SCH ×4 (08:08→20:07)
[2018-04-22] MEDS: Acetaminophen TAB* 325 MG PO PRN ×2 (08:18→23:17)
--- NOTE | 2018-04-22 10:24 | PN ---
Subjective - Subjective Reason for Note: Progress Note History: He had a fever of 102F overnight. However, he is feeling better this morning. He has walked around the floor without problems independently. He continues to have right flank pain when he voids, but no dysuria/hematuria. His appetite is restored. 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, uncontr (Chronic ) E11.3299, E11.65 Type 2 diabetes, uncontrolled, with neuropathy (Chronic) E11.40, E11.65 Ureteral stent retained (Chronic) Z96.0 Urothelial carcinoma of bladder (Chronic) C67.9 Current Medications: Current Medications Acetaminophen (Tylenol Tab*) 650 mg PO Q6H PRN PRN Reason: FEVER/PAIN Last Admin: 04/22/18 08:18 Dose: 650 mg Allopurinol (Zyloprim Tab*) 300 mg PO QAM [facility] Last Admin: 04/22/18 08:06 Dose: 300 mg Atorvastatin Calcium (Lipitor*) 20 mg PO QPM [facility] Last Admin: 04/21/18 17:11 Dose: 20 mg Cyanocobalamin (Vitamin B12 Tab*) 500 mcg PO QPM [facility] Last Admin: 04/21/18 17:11 Dose: 500 mcg Dextrose (D50w Syringe 50 Ml*) 12.5 gm IV PUSH .FOR FS < 60 - SS PRN PRN Reason: FS < 60 Fluticasone Propionate (Flonase Nasal [place] 50mcg*) 1 spray BOTH NARES ONCE PRN PRN Reason: allergies Heparin Sodium (Porcine) (Heparin Vial(*)) 5,000 units SUBCUT Q8HR [facility] Last Admin: 04/22/18 05:32 Dose: 5,000 units Cefepime HCl (Maxipime 2 Gm In Dextrose Duplex (*)) 2 gm in 50 mls @ 100 mls/ hr IV Q12H [facility] Last Admin: 04/22/18 03:29 Dose: 100 mls/hr Lactated Ringer's (Lactated Ringers 1000 Ml Bag*) 1,000 mls @ 75 mls/hr IV PER RATE [facility] Last Admin: 04/21/18 20:28 Dose: 75 mls/hr Vancomycin HCl 1,250 mg/ (Sodium Chloride) 250 mls @ 166.667 mls/hr IVPB Q12H [facility] Last Admin: 04/22/18 08:05 Dose: 166.667 mls/hr Indapamide (Lozol Tab*) 2.5 mg PO QAM [facility] Last Admin: 04/22/18 08:06 Dose: 2.5 mg Insulin Glargine (Lantus(*)) 60 units SUBCUT BEDTIME [facility] Last Admin: 04/21/18 20:30 Dose: 60 unit Insulin Human Lispro (Humalog*) 0 units SUBCUT ACHS [facility]; Protocol Last Admin: 04/22/18 08:08 Dose: 6 units Pharmacy Consult (Vancomycin Per Pharmacy*) 1 note FOLLOW UP . PRN PRN Reason: PER PROTOCOL Pharmacy Profile Note (Vancomycin Trough Check) 1 note FOLLOW UP .ENTER TIME ONE Stop: 04/23/18 07:31 Tamsulosin HCl (Flomax Cap*) 0.4 mg PO QPM [facility] Last Admin: 04/21/18 17:11 Dose: 0.4 mg Home Medications: Home Medications Medication Instructions Recorded Confirmed Type Fluticasone NASAL * [Flonase (NF)] 1 inh BOTH NARES ONCE PRN 08/15/12 04/20/18 History Tamsulosin CAP* [Flomax CAP*] 0.4 mg PO QPM 08/15/12 04/20/18 History metFORMIN* [Glucophage*] 2 tab PO BID 08/15/12 04/20/18 History Allopurinol TAB* [Zyloprim 300 MG 300 mg PO QAM 02/21/18 04/20/18 History TAB*] Atorvastatin* [Lipitor*] 20 mg PO QPM 02/21/18 04/20/18 History Cyanocobalamin (Vitamin B-12) 500 mcg PO QPM 02/21/18 04/20/18 History [B-12] Dutasteride (NF) [Avodart (NF)] 0.5 mg PO QAM 02/21/18 04/20/18 History Indapamide TAB* [Lozol TAB*] 2.5 mg PO QAM 02/21/18 04/20/18 History Insulin GLARGINE(*) [Lantus(*)] 60 units SUBCUT BEDTIME 02/21/18 04/20/18 History Liraglutide (NF) [Victoza (NF)] 1.8 mg SUBCUT DAILY 02/21/18 04/20/18 History Potassium Citrate [Potassium 10 meq PO TID 02/21/18 04/20/18 History Citrate ER] glipiZIDE TAB.XL* [Glucotrol XL*] 10 mg PO BID 02/21/18 04/20/18 History amLODIPine TAB* [Norvasc 5 mg TAB*] 5 mg PO QPM 04/20/18 04/20/18 History Allergies: Allergies Allergy/AdvReac Type Severity Reaction Status Date / Time ampicillin Allergy Intermediate Hives Verified 04/14/18 06:25 Penicillins Allergy Intermediate Hives Verified 04/14/18 06:25 Iodinated Contrast- Oral and Allergy Rash Verified 04/22/18 08:56 IV Dye iv contrast Allergy Intermediate Rash Uncoded 04/14/18 06:25 Objective - Vital Signs Vital Signs: Vital Signs 04/21/18 04/21/18 04/21/18 12:20 15:34 19:29 Temperature 99.1 F 97.8 F 102.1 F Pulse Rate 91 84 95 Respiratory 22 18 18 Rate Blood Pressure 129/64 126/62 143/64 (mmHg) O2 Sat by Pulse 94 95 94 Oximetry 04/21/18 04/21/18 04/21/18 20:00 21:10 23:36 Temperature 99.6 F 98.1 F Pulse Rate 84 73 Respiratory 18 18 22 Rate Blood Pressure 126/60 126/66 (mmHg) O2 Sat by Pulse 97 93 97 Oximetry 04/22/18 04/22/18 04/22/18 03:52 07:16 08:03 Temperature 98.6 F 99.3 F Pulse Rate 86 80 Respiratory 18 18 20 Rate Blood Pressure 144/64 136/69 (mmHg) O2 Sat by Pulse 95 97 Oximetry - Intake and Output Intake and Output: Intake & Output 04/19/18 04/20/18 04/21/18 04/22/18 11:59 11:59 11:59 11:59 Intake Total 3414 3570.1 Output Total 1975 0 Balance 1439 3570.1 Weight 242 lb 12.8 oz Intake: IV Fluids 3351 1680.1 Cefepime 15 LR 1351 1665.1 IVPB 63 50 Cefepime 50 LR 63 Oral 0 1840 Output: Urine 1975 0 Other: Estimated Void Medium # Bowel Movements 0 0 # Voids 0 1 ADLs: Meal Record Start: 04/20/18 18: 34 Freq: DAILY@0900,1400,1800 Status: Active Protocol: Created 04/20/18 18:34 System (Rec: 04/20/18 18:34 System TELE-M12) Document 04/21/18 09:00 [id number] (Rec: 04/21/18 10:29 [id number] TELE-C01) Document 04/21/18 14:00 [id number] (Rec: 04/21/18 15:14 [id number] TELE-C05) Document 04/21/18 17:56 [id number] (Rec: 04/21/18 17:56 [id number] TELE-C01) Document 04/22/18 09:00 [id number] (Rec: 04/22/18 09:38 [id number] TELE-C09) Intake and Output Start: 04/20/18 13: 26 Freq: Status: Active Protocol: Created 04/20/18 13:26 System (Rec: 04/20/18 13:26 System ED-C24) Intake and Output Start: 04/20/18 18: 34 Freq: DAILY@0600,1400,2200 Status: Active Protocol: Created 04/20/18 18:34 System (Rec: 04/20/18 18:34 System TELE-M12) Document 04/20/18 22:00 [id number] (Rec: 04/20/18 23:30 [id number] TELE-C01) Document 04/20/18 22:15 [id number] (Rec: 04/21/18 01:09 [id number] TELE-C05) Document 04/21/18 01:08 [id number] (Rec: 04/21/18 01:08 [id number] TELE-C05) Document 04/21/18 06:00 [id number] (Rec: 04/21/18 06:14 [id number] TELE-C34) Document 04/21/18 14:00 [id number] (Rec: 04/21/18 15:14 [id number] TELE-C05) Document 04/21/18 22:00 [id number] (Rec: 04/21/18 22:08 [id number] TELE-C01) Document 04/22/18 06:00 [id number] (Rec: 04/22/18 06:50 [id number] TELE-C33) - Physical Exam General Physical Exam Comment: He feels warm and continues to look flushed General: No Cyanosis, No Anemia, No Jaundice, No Clubbing Skin: Normal: Rash Lungs and Chest: Yes: Chest Expansion Full, Chest Expansion Symetrica, Percussion Note Resonant, Vessicular Breath Sounds. No: Crackles, Wheezes, Respiratory Distress, Use of Accessory Muscles Heart Rate and Rhythm: Regular [place] Beat: Non Displaced Additional Cardiovascular: Yes: Normal Heart Sounds, Heart Murmur. No: Pedal Edema Abdominal Exam: Yes: Soft. No: Distention, Rigidity, Hepatomegaly, Abdominal Tenderness, Guarding, Rebound Tenderness, Kidneys Palpable - flank tenderness, Bowel Sounds Present Results - Results Lab Results: Laboratory Results - last 24 hr 04/21/18 04/21/18 04/21/18 11:47 16:31 19:50 WBC RBC Hgb Hct MCV MCH MCHC RDW Plt Count MPV Neut % (Auto) Lymph % (Auto) [place] % (Auto) Eos % (Auto) Baso % (Auto) Absolute Neuts (auto) Absolute Lymphs (auto) Absolute Monos (auto) Absolute Eos (auto) Absolute Basos (auto) Absolute Nucleated RBC Nucleated RBC % Sodium Potassium Chloride Carbon Dioxide Anion Gap BUN Creatinine Est GFR ( Amer) Est GFR (Non-Af Amer) BUN/Creatinine Ratio Glucose POC Glucose (mg/dL) 120 H 228 H 268 H Calcium Total Bilirubin Direct Bilirubin Indirect Bilirubin AST ALT Alkaline Phosphatase C-Reactive Protein Total Protein Albumin Globulin Albumin/Globulin Ratio 04/22/18 04/22/18 04/22/18 04:52 04:52 07:29 WBC 18.0 H RBC 4.07 Hgb 13.0 L Hct 38 L MCV 93 MCH 32 H MCHC 34 RDW 13 Plt Count 156 MPV 8.6 Neut % (Auto) 84.7 H Lymph % (Auto) 4.2 L [place] % (Auto) 8.9 H Eos % (Auto) 1.5 Baso % (Auto) 0.7 Absolute Neuts (auto) 15.2 H Absolute Lymphs (auto) 0.7 L Absolute Monos (auto) 1.6 H Absolute Eos (auto) 0.3 Absolute Basos (auto) 0.1 Absolute Nucleated RBC 0 Nucleated RBC % 0 Sodium 133 L Potassium 3.0 L Chloride 99 L Carbon Dioxide 26 Anion Gap 8 BUN 17 Creatinine 1.38 H Est GFR ( Amer) 61.5 Est GFR (Non-Af Amer) 50.8 BUN/Creatinine Ratio 12.3 Glucose 248 H POC Glucose (mg/dL) 240 H Calcium 8.1 L Total Bilirubin 0.60 Direct Bilirubin 0.20 H Indirect Bilirubin 0.4 AST 27 ALT 29 Alkaline Phosphatase 46 C-Reactive Protein 267.86 H Total Protein 6.2 L Albumin 3.2 Globulin 3.0 Albumin/Globulin Ratio 1.1 Radiology Results: Patient Name: KATLYN CYR Medical Record#: [id number] Ordering Physician: Uri Cody MD Acct.#: [id number] : 1945 Age: 72 Sex: M Location: [address] [place] [address]/TELEMETRY Exam Date: 04/21/18930 ADM Status: ADM IN Order Information: ABDOMEN/KUB 1 VW Accession Number: [id number] CPT: 79716 HISTORY: urosepsis with right stent COMPARISONS: April 14, 2018 VIEWS: Frontal views of the abdomen. FINDINGS: BOWEL: There is a nonspecific bowel gas pattern, with nondilated small bowel gas noted. CALCULI: A right ureteral stent is noted. BONES AND SOFT TISSUES: Degenerative changes are noted. OTHER FINDINGS: The lung bases are clear. There is no subphrenic gas. IMPRESSION: RIGHT URETERAL STENT <Electronically signed by Noé Donnelly MD in OV> 04/21/180 Dictated By: Noé Donnelly MD Dictated Date/Time: 04/21/181334 Transcribed Date/Time: 04/21/181333 Copy to: CC:Uri Cody MD; Manisha Carey DO; Servando Baker MD Imaging - [facility] Imaging - [facility] Imaging - [facility] [id number] [place] [id number] [place] [address] ph ([phone]) ph ([phone]) ph ([phone]) Patient Name: KATLYN CYR Medical Record#: [id number] Ordering Physician: Uri Cody MD Acct.#: [id number] : 1945 Age: 72 Sex: M Location: [address] [place] [address] MEDICAL/TELEMETRY Exam Date: 04/21/18930 ADM Status: ADM IN Order Information: US RENAL AND BLADDER Accession Number: [id number] CPT: 41437 HISTORY: urosepsis COMPARISONS: CT dated February 17, 2018 TECHNIQUE: Multiple transverse and longitudinal ultrasound images were obtained of the kidneys using grayscale and color Doppler imaging. FINDINGS: RIGHT KIDNEY: There is an exophytic simple cyst of the lower pole of the right kidney measuring 1.6 x 1.6 x 1.3 cm in size, corresponding to the finding noted on the previous CT examination. There is no hydronephrosis or nephrolithiasis. The right kidney measures 11.9 x 6.4 x 7.4 cm. LEFT KIDNEY: There are multiple renal cysts, including a cyst with a thin internal septation versus 2 adjacent simple cysts of the midpole of the left kidney. These are stable from the previous CT examination, measuring up to 2.7 cm in size. There is no hydronephrosis or nephrolithiasis. The left kidney measures 10.8 x 6.2 x 8.1 cm. BLADDER: The bladder is smooth in contour. The left ureteral jet is not clearly visualized.. The prevoid bladder volume is 282 milliliters.. The postvoid bladder volume is 215 milliliters. AORTA AND IVC: No images are submitted of the vasculature. RETROPERITONEUM: Unremarkable. PROSTATE: The prostate gland measures 5 x 2.2 x 3.74 volume of 21.9 mL. IMPRESSION: 1. NO HYDRONEPHROSIS. 2. THE LEFT URETERAL JET IS NOT CLEARLY VISUALIZED. 3. 215 ML POSTVOID RESIDUAL <Electronically signed by Noé Donnelly MD in OV> 04/21/18 1234 Dictated By: Noé Donnelly MD Dictated Date/Time: 04/21/18 1234 Transcribed Date/Time: 04/21/18 1229 Copy to: This report is only to be considered final once signed by the Provider(s) as displayed in the "<Electronically Signed by >" field (s). Absence of a signature indicates the report is in a draft status and still needs to be finalized. In the event this document was created by someone other than the signing Provider, the individual initiating the document will be listed in the "Entered by:" or "Dictated by:" santos. 1 of 2 Other Results/Reports: RUN DATE: 04/22/18 [facility] LAB LIVE PAGE 1 RUN TIME: [address] [address] Specimen Inquiry Name: KATLYN CYR : [address]: Uri Cody MD Acct: [id number] Unit: [id number] AGE: 72 Location: [place] [address] Re04/20/18 SEX: M Status: ADM IN SPEC: [id number] KENDRA: 04/20/18-[address]: Yifan Quezada MD REQ: [id number] RECD: 04/20/18 _ STATUS: COMP OTHR DR: Uri Cody MD SOURCE: BLOOD,VENO SPDESC: ORDERED: Blood Cult COMMENTS: Verbal to [id number] by [email or web address] at 0548 on 04/21/18. Results read back accurately. Procedure Result Reported Site Aerobic Culture Bottle Final 04/22/18- 0856 ML Aerobic Bottle Gram Stain Gram Positive Cocci resembling Strep Organism 1 ENTEROCOCCUS FAECALIS 1. ENTEROCOCCUS FAECALIS M.I.C. RX Ampicillin <=2 S Penicillin 4 S Ciprofloxacin 1 S Erythromycin 2 I Gentamicin High Level S Levofloxacin 2 S Linezolid 2 S * Quinupristin/Dalfopristin 8 R * Streptomycin High Level S Tetracycline >=16 R Tigecycline <=0.12 S Vancomycin 1 S Imipenem-Deduced S * Ampicillin/Sulbactam-Deduced S * These antibiotics are not available in the [facility] Formulary Contact the Microbiology Department for any additional antibiotic reporting. Anaerobic Culture Bottle Final 04/22/18- 0856 ML Anaerobic Btl Gram Stain Gram Positive Coccobacilli CONTINUED ON NEXT PAGE DEPARTMENT OF PATHOLOGY, [address] [place] [address] Narendra Suarez M.D. 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 However, he continues to require high doses of IV antibacterials. Enterococcus fecalis was cultured from venous blood. It is sensitive to penicillins/cephalosporins - I will stop the vancomycin. Ureteral stent retained (Chronic) Urothelial carcinoma of bladder (Chronic) I appreciate Dr. Baker's note. There is no need for any revision of stent as the US kidneys shows no hydronephrosis. 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 I will increase his basal insulin Essential hypertension (Chronic) This is controlled Hyperlipidemia (Chronic) secondary diagnosis Nephrolithiasis (Chronic) secondary diagnosis Nonalcoholic steatohepatitis (ALDRIDGE) (Chronic) secondary diagnosis Obesity (BMI 30.0-34.9) (Chronic) secondary diagnosis I discussed the above with the patient and he agrees with the management.
[2018-04-22] MEDS ORDERED: Insulin GLARGINE(*) 1 UNITS UNIT SUBCUT ONE (10:36)
[2018-04-22] MEDS: Insulin GLARGINE(*) 1 UNITS UNIT SUBCUT SCH ×2 (12:09→23:12)
[2018-04-22] MEDS: Atorvastatin* 20 MG TAB PO SCH (17:57)
[2018-04-22] MEDS: Cyanocobalamin TAB* 500 MCG PO SCH (17:57)
[2018-04-22] MEDS: Tamsulosin CAP* 0.4 MG PO SCH (17:57)
[2018-04-23] MEDS ORDERED: Potassium Chlor TAB* 20 MEQ TAB.ER PO ONE (01:45)
[2018-04-23] MEDS: Cefepime 2 GM in Dextrose(*) 2 GM/50 ML BAG IV SCH ×2 (02:47→15:33)
[2018-04-23] MEDS: Heparin VIAL(*) 5000 UNITS/ML VIAL (FIVE THOUSAND) SUBCUT SCH ×3 (05:43→21:06)
[2018-04-23 06:00] LABS: ABS Basophils 0.1 10^3/ul (0-0.2); ABS Eosinophils 0.5 10^3/ul (0-0.6); ABS Lymphocytes 1.3 10^3/ul (1.0-4.8); ABS Monocytes 1.2 10^3/ul (0-0.8); ABS Neutrophils 9.2 10^3/ul (1.5-7.7); ABS Nucleated RBC 0 10^3/ul; Eosinophil % 3.7 % (0-6); Hematocrit 38 % (42-52); Hemoglobin 13.3 g/dl (14.0-18.0); Lymphocyte % 10.6 % (25-47); Mean Corpuscular HGB Conc 35 g/dl (31-36); Mean Corpuscular Hemoglobin 32 pg (27-31); Mean Corpuscular Volume 93 fL (80-94); Mean Platelet Volume 8.9 um3 (7.4-10.4); Nucleated Red Blood Cells % 0.1; Platelet Count 190 10^3/ul (150-450); Red Blood Count 4.14 10^6/ul (4.00-5.40); Red Cell Distribution Width 13 % (10.5-15); White Blood Count 12.2 10^3/ul (3.5-10.8)
[2018-04-23 06:27] LABS: EGFR Non-African American 47.2 (>60)
[2018-04-23 07:08] LABS: Vancomycin Trough 8.5 mcg/mL
[2018-04-23] MEDS ORDERED: Vancomycin Trough Check NOTE FOLLOW UP ONE (07:30)
[2018-04-23] MEDS: Indapamide TAB* 2.5 MG PO SCH (09:00)
[2018-04-23] MEDS: Allopurinol TAB* 300 MG PO SCH (09:00)
[2018-04-23] MEDS: Insulin LISPRO* 1 UNITS UNIT SUBCUT SCH ×4 (09:01→21:04)
[2018-04-23] MEDS: Insulin GLARGINE(*) 1 UNITS UNIT SUBCUT SCH ×3 (09:02→21:05)
--- NOTE | 2018-04-23 09:19 | PN ---
Subjective - Subjective Reason for Note: Progress Note History: He had soaking night sweats last night. He also had an episode of severe right renal angle pain. This morning he is feeling improved. He is walking around the medical floor. He is drinking plenty of fluids. He has some loose stool. 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, uncontr (Chronic ) E11.3299, E11.65 Type 2 diabetes, uncontrolled, with neuropathy (Chronic) E11.40, E11.65 Ureteral stent retained (Chronic) Z96.0 Urothelial carcinoma of bladder (Chronic) C67.9 Current Medications: Current Medications Acetaminophen (Tylenol Tab*) 650 mg PO Q6H PRN PRN Reason: FEVER/PAIN Last Admin: 04/22/18 23:17 Dose: 650 mg Allopurinol (Zyloprim Tab*) 300 mg PO QAM [facility] Last Admin: 04/23/18 09:00 Dose: 300 mg Atorvastatin Calcium (Lipitor*) 20 mg PO QPM [facility] Last Admin: 04/22/18 17:57 Dose: 20 mg Cyanocobalamin (Vitamin B12 Tab*) 500 mcg PO QPM [facility] Last Admin: 04/22/18 17:57 Dose: 500 mcg Dextrose (D50w Syringe 50 Ml*) 12.5 gm IV PUSH .FOR FS < 60 - SS PRN PRN Reason: FS < 60 Fluticasone Propionate (Flonase Nasal [place] 50mcg*) 1 spray BOTH NARES ONCE PRN PRN Reason: allergies Heparin Sodium (Porcine) (Heparin Vial(*)) 5,000 units SUBCUT Q8HR [facility] Last Admin: 04/23/18 05:43 Dose: 5,000 units Cefepime HCl (Maxipime 2 Gm In Dextrose Duplex (*)) 2 gm in 50 mls @ 100 mls/ hr IV Q12H [facility] Last Admin: 04/23/18 02:47 Dose: 100 mls/hr Indapamide (Lozol Tab*) 2.5 mg PO QAM [facility] Last Admin: 04/23/18 09:00 Dose: 2.5 mg Insulin Glargine (Lantus(*)) 40 units SUBCUT BID [facility] Last Admin: 04/23/18 09:03 Dose: Not Given Insulin Human Lispro (Humalog*) 0 units SUBCUT [facility]; Protocol Last Admin: 04/23/18 09:01 Dose: 3 units Tamsulosin HCl (Flomax Cap*) 0.4 mg PO QPM [facility] Last Admin: 04/22/18 17:57 Dose: 0.4 mg Home Medications: Home Medications Medication Instructions Recorded Confirmed Type Fluticasone NASAL * [Flonase (NF)] 1 inh BOTH NARES ONCE PRN 08/15/12 04/20/18 History Tamsulosin CAP* [Flomax CAP*] 0.4 mg PO QPM 08/15/12 04/20/18 History metFORMIN* [Glucophage*] 2 tab PO BID 08/15/12 04/20/18 History Allopurinol TAB* [Zyloprim 300 MG 300 mg PO QAM 02/21/18 04/20/18 History TAB*] Atorvastatin* [Lipitor*] 20 mg PO QPM 02/21/18 04/20/18 History Cyanocobalamin (Vitamin B-12) 500 mcg PO QPM 02/21/18 04/20/18 History [B-12] Dutasteride (NF) [Avodart (NF)] 0.5 mg PO QAM 02/21/18 04/20/18 History Indapamide TAB* [Lozol TAB*] 2.5 mg PO QAM 02/21/18 04/20/18 History Insulin GLARGINE(*) [Lantus(*)] 60 units SUBCUT BEDTIME 02/21/18 04/20/18 History Liraglutide (NF) [Victoza (NF)] 1.8 mg SUBCUT DAILY 02/21/18 04/20/18 History Potassium Citrate [Potassium 10 meq PO TID 02/21/18 04/20/18 History Citrate ER] glipiZIDE TAB.XL* [Glucotrol XL*] 10 mg PO BID 02/21/18 04/20/18 History amLODIPine TAB* [Norvasc 5 mg TAB*] 5 mg PO QPM 04/20/18 04/20/18 History Allergies: Allergies Allergy/AdvReac Type Severity Reaction Status Date / Time ampicillin Allergy Intermediate Hives Verified 04/14/18 06:25 Penicillins Allergy Intermediate Hives Verified 04/14/18 06:25 Iodinated Contrast- Oral and Allergy Rash Verified 04/22/18 08:56 IV Dye iv contrast Allergy Intermediate Rash Uncoded 04/14/18 06:25 Objective - Vital Signs Vital Signs: Vital Signs 04/22/18 04/22/18 04/22/18 10:54 15:32 16:43 Temperature 98.4 F 98.3 F 98.9 F Pulse Rate 74 80 83 Respiratory 18 16 Rate Blood Pressure 138/64 138/73 147/71 (mmHg) O2 Sat by Pulse 96 96 Oximetry 04/22/18 04/22/18 04/23/18 19:17 20:00 00:27 Temperature 98.3 F 98.2 F Pulse Rate 86 76 Respiratory 16 16 16 Rate Blood Pressure 137/73 123/61 (mmHg) O2 Sat by Pulse 97 97 95 Oximetry 04/23/18 04/23/18 04/23/18 03:35 05:41 07:24 Temperature 98.3 F 98.4 F 98.0 F Pulse Rate 72 72 Respiratory 16 20 Rate Blood Pressure 124/65 113/70 (mmHg) O2 Sat by Pulse 93 95 Oximetry 04/23/18 08:00 Temperature Pulse Rate Respiratory 18 Rate Blood Pressure (mmHg) O2 Sat by Pulse 93 Oximetry - Intake and Output Intake and Output: Intake & Output 04/20/18 04/21/18 04/22/18 04/23/18 11:59 11:59 11:59 11:59 Intake Total 3414 3570.1 1060 Output Total 1975 0 0 Balance 1439 3570.1 1060 Weight 242 lb 12.8 oz Intake: IV Fluids 3351 1680.1 Cefepime 15 LR 1351 1665.1 IVPB 63 50 Cefepime 50 LR 63 Oral 0 1840 1060 Output: Urine 1975 0 0 Other: Estimated Void Medium # Bowel Movements 0 0 0 # Voids 0 1 4 ADLs: Meal Record Start: 04/20/18 18: 34 Freq: DAILY@0900,1400,1800 Status: Active Protocol: Created 04/20/18 18:34 System (Rec: 04/20/18 18:34 System TELE-M12) Document 04/21/18 09:00 [id number] (Rec: 04/21/18 10:29 [id number] TELE-C01) Document 04/21/18 14:00 [id number] (Rec: 04/21/18 15:14 [id number] TELE-C05) Document 04/21/18 17:56 [id number] (Rec: 04/21/18 17:56 [id number] TELE-C01) Document 04/22/18 09:00 [id number] (Rec: 04/22/18 09:38 [id number] TELE-C09) Document 04/22/18 14:00 [id number] (Rec: 04/22/18 14:15 [id number] TELE-C09) Document 04/22/18 18:00 [id number] (Rec: 04/22/18 21:36 [id number] TELE-C07) Intake and Output Start: 04/20/18 13: 26 Freq: Status: Active Protocol: Created 04/20/18 13:26 System (Rec: 04/20/18 13:26 System ED-C24) Intake and Output Start: 04/20/18 18: 34 Freq: DAILY@0600,1400,2200 Status: Active Protocol: Created 04/20/18 18:34 System (Rec: 04/20/18 18:34 System TELE-M12) Document 04/20/18 22:00 [id number] (Rec: 04/20/18 23:30 [id number] TELE-C01) Document 04/20/18 22:15 [id number] (Rec: 04/21/18 01:09 [id number] TELE-C05) Document 04/21/18 01:08 [id number] (Rec: 04/21/18 01:08 [id number] TELE-C05) Document 04/21/18 06:00 [id number] (Rec: 04/21/18 06:14 [id number] TELE-C34) Document 04/21/18 14:00 [id number] (Rec: 04/21/18 15:14 [id number] TELE-C05) Document 04/21/18 22:00 [id number] (Rec: 04/21/18 22:08 [id number] TELE-C01) Document 04/22/18 06:00 [id number] (Rec: 04/22/18 06:50 [id number] TELE-C33) Document 04/22/18 14:00 [id number] (Rec: 04/22/18 14:15 [id number] TELE-C09) Document 04/22/18 22:00 [id number] (Rec: 04/22/18 22:31 [id number] TELE-C07) Document 04/23/18 06:00 [id number] (Rec: 04/23/18 06:28 [id number] TELE-C35) - Physical Exam General: No Cyanosis, No Anemia, No Jaundice, No Clubbing Skin: Normal: Rash Lungs and Chest: Yes: Chest Expansion Full, Chest Expansion Symetrica, Percussion Note Resonant, Vessicular Breath Sounds. No: Crackles, Wheezes Heart Rate and Rhythm: Regular JVP: Not Elevated Additional Cardiovascular: Yes: Normal Heart Sounds. No: Heart Murmur, Pedal Edema Abdominal Exam: Yes: Soft. No: Distention, Abdominal Mass, Hepatomegaly, Abdominal Tenderness Results - Results Lab Results: Laboratory Results - last 24 hr 04/22/18 04/22/18 04/22/18 11:42 16:02 19:45 WBC RBC Hgb Hct MCV MCH MCHC RDW Plt Count MPV Neut % (Auto) Lymph % (Auto) [place] % (Auto) Eos % (Auto) Baso % (Auto) Absolute Neuts (auto) Absolute Lymphs (auto) Absolute Monos (auto) Absolute Eos (auto) Absolute Basos (auto) Absolute Nucleated RBC Nucleated RBC % Sodium Potassium Chloride Carbon Dioxide Anion Gap BUN Creatinine Est GFR ( Amer) Est GFR (Non-Af Amer) BUN/Creatinine Ratio Glucose POC Glucose (mg/dL) 254 H 193 H 265 H Calcium C-Reactive Protein Vancomycin Trough 04/23/18 04/23/18 04/23/18 05:49 05:49 08:18 WBC 12.2 H RBC 4.14 Hgb 13.3 L Hct 38 L MCV 93 MCH 32 H MCHC 35 RDW 13 Plt Count 190 MPV 8.9 Neut % (Auto) 75.4 Lymph % (Auto) 10.6 L [place] % (Auto) 9.4 H Eos % (Auto) 3.7 Baso % (Auto) 0.9 Absolute Neuts (auto) 9.2 H Absolute Lymphs (auto) 1.3 Absolute Monos (auto) 1.2 H Absolute Eos (auto) 0.5 Absolute Basos (auto) 0.1 Absolute Nucleated RBC 0 Nucleated RBC % 0.1 Sodium 137 Potassium 3.3 L Chloride 100 L Carbon Dioxide 31 Anion Gap 6 BUN 20 Creatinine 1.47 H Est GFR ( Amer) 57.1 Est GFR (Non-Af Amer) 47.2 BUN/Creatinine Ratio 13.6 Glucose 164 H POC Glucose (mg/dL) 160 H Calcium 8.7 C-Reactive Protein 167.95 H Vancomycin Trough 8.5 Assessment - Problem List Assessment: Patient Problems Enterococcal bacteremia (Acute) Fever and chills (Acute) Sepsis (Acute) Essential hypertension (Chronic) Hyperlipidemia (Chronic) Nephrolithiasis (Chronic) Nonalcoholic steatohepatitis ([place]DRIDGE) (Chronic) Obesity (BMI 30.0-34.9) (Chronic) Type 2 DM mild nonproliferative retinopathy, 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 His CRP is coming down Ureteral stent retained (Chronic) This appears to be patent. Urothelial carcinoma of bladder (Chronic) per Dr. 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
[2018-04-23] MEDS: Atorvastatin* 20 MG TAB PO SCH (17:31)
[2018-04-23] MEDS: Cyanocobalamin TAB* 500 MCG PO SCH (17:32)
[2018-04-23] MEDS: Tamsulosin CAP* 0.4 MG PO SCH (17:32)
[2018-04-23] MEDS: Acetaminophen TAB* 325 MG PO PRN (22:45)
[2018-04-24] MEDS: Cefepime 2 GM in Dextrose(*) 2 GM/50 ML BAG IV SCH (03:38)
[2018-04-24] MEDS: Heparin VIAL(*) 5000 UNITS/ML VIAL (FIVE THOUSAND) SUBCUT SCH (06:08)
[2018-04-24 07:55] VITALS: BP 124/69
[2018-04-24] MEDS: Insulin GLARGINE(*) 1 UNITS UNIT SUBCUT SCH (08:03)
[2018-04-24] MEDS: Insulin LISPRO* 1 UNITS UNIT SUBCUT SCH (08:03)
[2018-04-24] MEDS: Indapamide TAB* 2.5 MG PO SCH (08:04)
[2018-04-24] MEDS: Allopurinol TAB* 300 MG PO SCH (08:04)
--- NOTE | 2018-04-24 08:30 | PN ---
Subjective - Subjective Reason for Note: Discharge Note History: He is feeling better from the urosepsis point of view - though he had sweats overnight. However, he has developed gout in his right 2nd toe. 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, uncontr (Chronic ) E11.3299, E11.65 Type 2 diabetes, uncontrolled, with neuropathy (Chronic) E11.40, E11.65 Ureteral stent retained (Chronic) Z96.0 Urothelial carcinoma of bladder (Chronic) C67.9 Current Medications: Current Medications Acetaminophen (Tylenol Tab*) 650 mg PO Q6H PRN PRN Reason: FEVER/PAIN Last Admin: 04/23/18 22:45 Dose: 650 mg Allopurinol (Zyloprim Tab*) 300 mg PO QAM [facility] Last Admin: 04/24/18 08:04 Dose: 300 mg Atorvastatin Calcium (Lipitor*) 20 mg PO QPM [facility] Last Admin: 04/23/18 17:31 Dose: 20 mg Cyanocobalamin (Vitamin B12 Tab*) 500 mcg PO QPM [facility] Last Admin: 04/23/18 17:32 Dose: 500 mcg Dextrose (D50w Syringe 50 Ml*) 12.5 gm IV PUSH .FOR FS < 60 - SS PRN PRN Reason: FS < 60 Fluticasone Propionate (Flonase Nasal [place] 50mcg*) 1 spray BOTH NARES ONCE PRN PRN Reason: allergies Heparin Sodium (Porcine) (Heparin Vial(*)) 5,000 units SUBCUT Q8HR [facility] Last Admin: 04/24/18 06:08 Dose: 5,000 units Cefepime HCl (Maxipime 2 Gm In Dextrose Duplex (*)) 2 gm in 50 mls @ 100 mls/ hr IV Q12H [facility] Last Admin: 04/24/18 03:38 Dose: 100 mls/hr Indapamide (Lozol Tab*) 2.5 mg PO QAM [facility] Last Admin: 04/24/18 08:04 Dose: 2.5 mg Insulin Glargine (Lantus(*)) 40 units SUBCUT BID [facility] Last Admin: 04/24/18 08:03 Dose: 40 units Insulin Human Lispro (Humalog*) 0 units SUBCUT ACHS [facility]; Protocol Last Admin: 04/24/18 08:03 Dose: 2 units Tamsulosin HCl (Flomax Cap*) 0.4 mg PO QPM [facility] Last Admin: 04/23/18 17:32 Dose: 0.4 mg Home Medications: Home Medications Medication Instructions Recorded Confirmed Type Fluticasone NASAL * [Flonase (NF)] 1 inh BOTH NARES ONCE PRN 08/15/12 04/20/18 History Tamsulosin CAP* [Flomax CAP*] 0.4 mg PO QPM 08/15/12 04/20/18 History metFORMIN* [Glucophage*] 2 tab PO BID 08/15/12 04/20/18 History Allopurinol TAB* [Zyloprim 300 MG 300 mg PO QAM 02/21/18 04/20/18 History TAB*] Atorvastatin* [Lipitor*] 20 mg PO QPM 02/21/18 04/20/18 History Cyanocobalamin (Vitamin B-12) 500 mcg PO QPM 02/21/18 04/20/18 History [B-12] Dutasteride (NF) [Avodart (NF)] 0.5 mg PO QAM 02/21/18 04/20/18 History Indapamide TAB* [Lozol TAB*] 2.5 mg PO QAM 02/21/18 04/20/18 History Insulin GLARGINE(*) [Lantus(*)] 60 units SUBCUT BEDTIME 02/21/18 04/20/18 History Liraglutide (NF) [Victoza (NF)] 1.8 mg SUBCUT DAILY 02/21/18 04/20/18 History Potassium Citrate [Potassium 10 meq PO TID 02/21/18 04/20/18 History Citrate ER] glipiZIDE TAB.XL* [Glucotrol XL*] 10 mg PO BID 02/21/18 04/20/18 History amLODIPine TAB* [Norvasc 5 mg TAB*] 5 mg PO QPM 04/20/18 04/20/18 History Allergies: Allergies Allergy/AdvReac Type Severity Reaction Status Date / Time ampicillin Allergy Intermediate Hives Verified 04/14/18 06:25 Penicillins Allergy Intermediate Hives Verified 04/14/18 06:25 Iodinated Contrast- Oral and Allergy Rash Verified 04/22/18 08:56 IV Dye iv contrast Allergy Intermediate Rash Uncoded 04/14/18 06:25 Objective - Vital Signs Vital Signs: Vital Signs 04/23/18 04/23/18 04/23/18 11:27 15:38 19:24 Temperature 98.6 F 98.2 F 99.1 F Pulse Rate 72 77 75 Respiratory 20 18 16 Rate Blood Pressure 120/68 133/70 143/61 (mmHg) O2 Sat by Pulse 94 96 97 Oximetry 04/23/18 04/24/18 04/24/18 20:00 00:17 06:52 Temperature 97.9 F Pulse Rate 72 Respiratory 16 20 Rate Blood Pressure 127/64 (mmHg) O2 Sat by Pulse 97 96 96 Oximetry 04/24/18 04/24/18 06:56 07:25 Temperature 98.4 F Pulse Rate 70 Respiratory 18 16 Rate Blood Pressure 124/69 (mmHg) O2 Sat by Pulse 97 Oximetry - Intake and Output Intake and Output: Intake & Output 04/21/18 04/22/18 04/23/18 04/24/18 11:59 11:59 11:59 11:59 Intake Total 3414 3570.1 1310 250 Output Total 1975 0 0 400 Balance 1439 3570.1 1310 -150 Weight 242 lb 12.8 oz Intake: IV Fluids 3351 1680.1 30 Cefepime 15 30 LR 1351 1665.1 IVPB 63 50 100 Cefepime 50 100 LR 63 Oral 0 1840 1310 120 Output: Urine 1975 0 0 400 Other: Estimated Void Medium # Bowel Movements 0 0 0 0 # Voids 0 1 4 3 ADLs: Meal Record Start: 04/20/18 18: 34 Freq: DAILY@0900,1400,1800 Status: Active Protocol: Created 04/20/18 18:34 System (Rec: 04/20/18 18:34 System TELE-M12) Document 04/21/18 09:00 [id number] (Rec: 04/21/18 10:29 [id number] TELE-C01) Document 04/21/18 14:00 [id number] (Rec: 04/21/18 15:14 [id number] TELE-C05) Document 04/21/18 17:56 [id number] (Rec: 04/21/18 17:56 [id number] TELE-C01) Document 04/22/18 09:00 [id number] (Rec: 04/22/18 09:38 [id number] TELE-C09) Document 04/22/18 14:00 [id number] (Rec: 04/22/18 14:15 [id number] TELE-C09) Document 04/22/18 18:00 [id number] (Rec: 04/22/18 21:36 [id number] TELE-C07) Document 04/23/18 09:00 [id number] (Rec: 04/23/18 12:42 [id number] TELE-C01) Document 04/23/18 14:00 [id number] (Rec: 04/23/18 14:27 [id number] TELE-C01) Document 04/23/18 18:00 [id number] (Rec: 04/23/18 18:01 [id number] TELE-C01) Intake and Output Start: 04/20/18 13: 26 Freq: Status: Active Protocol: Created 04/20/18 13:26 System (Rec: 04/20/18 13:26 System ED-C24) Intake and Output Start: 04/20/18 18: 34 Freq: DAILY@0600,1400,2200 Status: Active Protocol: Created 04/20/18 18:34 System (Rec: 04/20/18 18:34 System TELE-M12) Document 04/20/18 22:00 [id number] (Rec: 04/20/18 23:30 [id number] TELE-C01) Document 04/20/18 22:15 [id number] (Rec: 04/21/18 01:09 [id number] TELE-C05) Document 04/21/18 01:08 [id number] (Rec: 04/21/18 01:08 [id number] TELE-C05) Document 04/21/18 06:00 [id number] (Rec: 04/21/18 06:14 [id number] TELE-C34) Document 04/21/18 14:00 [id number] (Rec: 04/21/18 15:14 [id number] TELE-C05) Document 04/21/18 22:00 [id number] (Rec: 04/21/18 22:08 [id number] TELE-C01) Document 04/22/18 06:00 [id number] (Rec: 04/22/18 06:50 [id number] TELE-C33) Document 04/22/18 14:00 [id number] (Rec: 04/22/18 14:15 [id number] TELE-C09) Document 04/22/18 22:00 [id number] (Rec: 04/22/18 22:31 [id number] TELE-C07) Document 04/23/18 06:00 [id number] (Rec: 04/23/18 06:28 [id number] TELE-C35) Document 04/23/18 14:00 [id number] (Rec: 04/23/18 14:27 [id number] TELE-C01) Document 04/23/18 21:46 [id number] (Rec: 04/23/18 21:53 [id number] TELE-C13) Document 04/24/18 06:00 [id number] (Rec: 04/24/18 06:42 [id number] TELE-C35) - Physical Exam General Physical Exam Comment: Right second toe inflammed, foot slightly swollen General: No Cyanosis, No Anemia, No Jaundice, No Clubbing Skin: Normal: Rash Lungs and Chest: Yes: Chest Expansion Full, Chest Expansion Symetrica, Percussion Note Resonant, Vessicular Breath Sounds. No: Crackles, Wheezes Heart Rate and Rhythm: Regular JVP: Not Elevated Additional Cardiovascular: Yes: Normal Heart Sounds. No: Heart Murmur Abdominal Exam: Yes: Soft, Bowel Sounds Present. 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 As he is allergic to PCN, I will change him over to levofloxacin Ureteral stent retained (Chronic) He will stay on the levofloxacin beyond removal of the stent Urothelial carcinoma of bladder (Chronic) Per Dr. Olivia Jacobson (Acute) This may have been triggered by the antibacterial. 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 I discussed the above with the patient and he agrees with management plan.
[2018-04-24] MEDS ORDERED: Colchicine* 0.6 MG TAB PO PRN (08:31)
[2018-04-24] MEDS ORDERED: Levofloxacin TAB* 750 MG PO SCH (09:00)
--- NOTE | 2018-04-24 13:44 | DS ---
CC: Dr. Servando Baker * DISCHARGE SUMMARY: DATE OF ADMISSION: 04/20/18 DATE OF DISCHARGE: 04/24/18 DISCHARGE DIAGNOSES: 1. Enterococcus faecalis bacteremia and sepsis. 2. High fever 1 week following instrumentation and right ureteric stent placement. 3. Comorbidities. 4. Urothelial carcinoma of the bladder. 5. History of nephrolithiasis. 6. Acute gout. 7. Worsening glycemic control due to acute illness and insulin resistance. SECONDARY DIAGNOSES: 1. Essential hypertension. 2. Hyperlipidemia. 3. Nonalcoholic steatohepatitis. 4. Obesity. 5. Type 2 diabetes mellitus, complicated by nonproliferative diabetic retinopathy and peripheral neuropathy. HISTORY: Igor Green is a 72-year-old white male, his presentation is documented in Manisha Carey DO's admitting history and physical, which a part of the electronic medical record. In short, 1 week prior to presentation, he underwent a biopsy of his bladder and placement of a right ureteric stent. He had a low-grade urothelial carcinoma diagnosed of his bladder. He developed right lower quadrant pain particularly on urination and presented with a fever of 105 degrees Fahrenheit. PHYSICAL EXAMINATION IN THE EMERGENCY ROOM: Temperature 100.4 with a rectal temperature of 102.2 Fahrenheit, pulse 97, respirations 22, oxygen saturation 96 %, blood pressure 158/90. He had a soft and mildly tender abdomen in the right lower quadrant. INITIAL IMPRESSION: Sepsis, rigors, elevated temperature, stable hemodynamically. Blood cultures drawn and sent for IV antibiotic use. INVESTIGATIONS: At presentation, his total white count was 13.3 on 04/22/18 and on 04/23/18, 12.2, percent neutrophils at presentation 82.8, on 04/22/18, 84.7, 04/23/18, 75.4. C-reactive protein at presentation 25.5, 04/22/18, 267.86 , on 04/23/18, 167.95. His creatinine ranged between 1.38 and 1.5. Urinalysis, 1+ protein, 2+ blood, 3+ esterase. IMAGING: At presentation, chest x-ray was clear. Plain abdominal x-ray showed right ureteric stent in situ. Bladder and kidney ultrasound, no hydronephrosis , left ureteral jet not clearly visualized, 215 mL postvoid residual. EKG, sinus rhythm 98, ND 145, QTc 557, QRS axis -33, prolonged QTc, left anterior hemiblock, poor R-wave progression. HOSPITAL COURSE: He was seen in consultation by Dr. Servando Baker who felt that this could be treated conservatively with IV antibiotics as there was no evidence of hydronephrosis. His temperature at first showed marked hyperpyrexia. He was treated with ice packs and fan, acetaminophen and empirically treated with IV cefepime and vancomycin. Microbiology grew Enterococcus faecalis from blood cultures. This was resistant to erythromycin, tetracycline but sensitive to other antibacterials. He responded well to rehydration, IV antibiotics, antipyretics, and his fever came down. His white cells and CRP also improved. On the day of discharge, he had some sweats overnight but no fevers. He has had a flare of gout in the second toe of his right foot. He otherwise is feeling improved. He has some pain on voiding in the right lower quadrant. No dysuria or hematuria. PHYSICAL EXAMINATION ON THE DAY OF DISCHARGE: Temperature 98.4, pulse 70, respirations 16, oxygen saturation 97% on room air, blood pressure 124/69. No cyanosis, anemia, jaundice, clubbing, or lymphadenopathy. Cardiovascular System : Pulse regular. Heart sounds normal. No added sounds or murmurs. No pedal edema. Respiratory System: Chest clear. Abdomen: Soft and nontender. No masses or organomegaly. Right foot second toe mildly swollen and slightly red. ASSESSMENT AND PLAN: 1. Enterococcus faecalis septicemia plus urinary tract infection. He is recovering well from this. I have chosen to put him on levofloxacin 750 mg every other day, which he will maintain for at least 1 week following stent removal which is anticipated in the next week or two. The bacteria is sensitive to this antibiotic. 2. Gout. I have treated him with colchicine. 3. Type 2 diabetes mellitus. He can resume his usual regimen as an outpatient. 4. Urothelial carcinoma of the bladder. Apparently, this is fairly mild. He will follow up with Dr. Baker for this. 5. Hypertension, not a problem. 6. Obesity, chronic issue. 7. Nonalcoholic steatohepatitis, again long-term issue which we will deal with as an outpatient. DISCHARGE MEDICATIONS: 1. Colchicine 0.6 mg every 6 hours as needed. 2. Levofloxacin 750 mg every 48 hours. 3. Fluticasone 1 spray each nostril each day. 4. Tamsulosin 0.4 mg q.h.s. 5. Glipizide 10 mg twice daily. 6. Dutasteride 0.5 mg q.a.m. 7. Cyanocobalamin 500 mcg every day. 8. Liraglutide 1.5 mg subcutaneously daily. 9. Glargine insulin 60 units q.h.s. subcutaneously. 10. Atorvastatin 20 mg q.h.s. 11. Allopurinol 300 mg daily. 12. Amlodipine 5 mg q.h.s. He will hold indapamide and potassium citrate when he has a flare of gout. [id number]/[facility] #: [id number] [facility]
== END 2018-04-24 10:43 | disposition home or self-care (01) | DRG 872 ==
LOC: ED 13:20 → MEDTELE 17:56
PROVIDERS: ADMIT Internal Medicine; ATTEND Internal Medicine
DX: A41.81 Sepsis due to Enterococcus (principal); N39.0 Urinary tract infection, site not specified; E11.42 Type 2 diabetes mellitus with diabetic polyneuropathy; E11.65 Type 2 diabetes mellitus with hyperglycemia; C67.9 Malignant neoplasm of bladder, unspecified; M10.9 Gout, unspecified; I12.9 Hypertensive chronic kidney disease with stage 1 through stage 4 chronic kidney disease, or unspecified chronic kidney disease; E11.22 Type 2 diabetes mellitus with diabetic chronic kidney disease; N18.9 Chronic kidney disease, unspecified; E88.81 Metabolic syndrome and other insulin resistance; E78.5 Hyperlipidemia, unspecified; K75.81 Nonalcoholic steatohepatitis (NASH); E66.9 Obesity, unspecified; E11.319 Type 2 diabetes mellitus with unspecified diabetic retinopathy without macular edema; N40.0 Benign prostatic hyperplasia without lower urinary tract symptoms; Z87.891 Personal history of nicotine dependence; Z68.32 Body mass index [BMI] 32.0-32.9, adult; Z79.84 Long term (current) use of oral hypoglycemic drugs; Z79.4 Long term (current) use of insulin; Z79.899 Other long term (current) drug therapy
CPT/HCPCS: 36415; 71045; 74018; 76770; 80048; 80053; 80076; 80202; 81003; 81015; 83605; 85025; 86140; 87040; 87077; 87086; 87186; 87205; 90686; 93005; 99284; A9270-GY; J0692; J1644; J3370